=== PATIENT | female | born 1975 | race Caucasian/White ===

== ENCOUNTER 2017-12-19 16:25 | Emergency (ER) | payer MEDICARE, MEDICAID ==
[2017-12-19] MEDS ORDERED: Ketorolac INJ* 30 MG/ML 1 ML VIAL IV ONE (17:24)
[2017-12-19] MEDS ORDERED: Ondansetron INJ* 2 MG/ML VIAL IV ONE (17:24)
[2017-12-19] MEDS ORDERED: Ketorolac INJ* 30 MG/ML 1 ML VIAL ONE (17:25)
[2017-12-19] MEDS ORDERED: Ondansetron INJ* 2 MG/ML VIAL ONE (17:26)
[2017-12-19] MEDS: NS 0.9% 1000 ML* 2,000 ML IV ONE ×2 (17:32→19:01)
--- OUTSIDE RECORDS SUMMARY | 2017-12-19 17:34 | XMS REPORT ---
:1975 External Reference #:[id number] Author Organization [facility] [employer] Address [address] [address] Phone [phone] Care Team Providers Name Role Phone Patient's Choice Primary Care Physician Unavailable Payers Type Date Identification Numbers Payment Provider Subscriber Health Maintenance Effective: Policy Number: [facility] Medicare Ivy Rivera (HMO) 10/22/2016 [id number] Solutions PayID: [id number] [address] [address] [place] [address] Medigap Part B Effective: 03/22/2014 Policy Number: Medicare Ivy Alva [id number] Expires: 10/21/2016 PayID: [id number] [address] [place] [address] Medigap Part B Policy Number: [id number] Medicaid Ivy Alva Group Name: 1 [address] PayID: [id number] [place] [address] Problems Date Description Provider Status Onset: 08/05/2015 Calcific tendinitis of right shoulder Joanne Silva M.D. Active Onset: 09/21/2015 Injury of shoulder region Luciana Hernandez MD Active Note: Right shoulder Onset: 04/13/2016 Disorder of shoulder Luciana Hernandez MD Active Onset: 11/21/2016 Dystrophia unguium Sly Rhoades M.D. Active Family History Date Family Member(s) Problem(s) Comments General Heart Disease Father Unknown Mother No Current Problems Social History Type Date Description Comments Marital Status Single Lives With homeless Staying at relative's apt for next week. Has housing assistance through [facility] Occupation Unemployed Cigarette Use Light tobacco smoker (10 or fewer cigarettes/day) ETOH Use Has consumed alcohol in the abuse up to 2003 past Recreational Drug Use Former Drug User h/o MJ and cocaine. No longer since 2003 Smoking Patient is a former smoker Quit Oct 2016, smoker less than 10 Cigs per day as well as used a vaporizer. Exercise Type/Frequency Exercises sporadically Allergies, Adverse Reactions, Alerts Date Description Reaction Status Severity Comments 05/25/2014 Morphine Rash on left arm active Medications Medication Date Status Form Strength Qnty SIG Indications Ordering Provider Citalopram 11/23/ Active Tablets 20mg 30tabs Take One [place] Hydrobromide 2018 Tablet By BERTO Quezada Mouth Every Day Hydroxyzine 11/23/ Active Tablets 25mg 60tabs 1-2 tablets G47.00 [place] HCL 2018 QHS BERTO Quezada Compression 11/21/ Hx Misc 1units Wear daily I83.92 Sly Killianlaly 2016 - , 11/23/ M.D. 2018 Jublia 11/21/ Hx Solution 10% 12ml apply to L60.8 Sly 2017 - the surface , 11/23/ of each M.D. 2018 affected nail after showering and allowing toes to dry - daily No Active 10/24/ Hx Unknown Medications 2016 - 2016 Oxycodone-Acet 11/16/ Hx Tablets 5-325mg 60tabs 1-2 tabs M75.31 Luciana blackman 2015 - every 4-6 MD Mary 12/20/ hours. do 2016 not combine with tylenol Oxycodone-Acet 11/05/ Hx Tablets 5-325mg 90tabs 1-2 tabs by Sly blackman 2015 - mouth every Brandt, 12/20/ 4-6 hours M.D. 2016 as needed pain Percocet 10/11/ Hx Tablets 5-325mg 90tabs take 1 tabs M75.31 Luciana 2014 - as needed MD Mary 12/20/ for pain 2016 every 6 hours. do not combine with tylenol Oxycodone-Acet 15/ Hx Tablets 5-325mg 60tabs 1-2 tabs by M25.511 Ramón blackman 2014 - mouth every Luis, 12/20/ 8 hours as M.D. 2016 needed pain Naproxen 05/25/ Hx Tablets 500mg 40tabs 1 tablet Joanne 2013 - with food Ricardo, 07/06/ by mouth Hollie 2014 twice a day Citalopram / Hx Tablets 20mg 90tabs 1 by mouth Unknown Hydrobromide 0000 - every day 2016 Influenza,Unsp / Hx Injection Unknown ecified - 2016 Medications Administered in Office Medication Date Status Form Strength Qnty SIG Indications Ordering Provider Depomedrol Administered Injection Joanne 80MG 015 Hollie Silva Vital Signs Date Vital Result Comment 11/23/2017 Weight 119.00 lb Heart Rate 71 /min BP Systolic 100 mmHg BP Diastolic 60 mmHg Body Temperature 98.3 F O2 % BldC Oximetry 99 % 12/19/2016 Heart Rate 78 /min BP Systolic 120 mmHg BP Diastolic 70 mmHg O2 % BldC Oximetry 99 % 11/21/2016 Weight 153.00 lb Heart Rate 98 /min BP Systolic Sitting 118 mmHg BP Diastolic Sitting 70 mmHg Respiratory Rate 15 /min O2 % BldC Oximetry 98 % 11/07/2016 Weight 154.00 lb Heart Rate 83 /min BP Systolic Sitting 116 mmHg BP Diastolic Sitting 80 mmHg Body Temperature 98.1 F O2 % BldC Oximetry 97 % 10/24/2016 Height 62 inches 5'2" Weight 152.00 lb Heart Rate 78 /min BP Systolic Sitting 126 mmHg BP Diastolic Sitting 68 mmHg Body Temperature 97.7 F O2 % BldC Oximetry 98 % BMI (Body Mass Index) 27.8 kg/m2 06/01/2016 Height 63 inches 5'3" Weight 146.00 lb Pain Level 0 BMI (Body Mass Index) 25.9 kg/m2 04/13/2016 Height 63 inches 5'3" Weight 160.00 lb Heart Rate 64 /min BP Systolic Sitting 120 mmHg BP Diastolic Sitting 64 mmHg Respiratory Rate 16 /min Pain Level 2 soreness BMI (Body Mass Index) 28.3 kg/m2 12/22/2015 Height 63 inches 5'3" Weight 160.00 lb Pain Level 0 BMI (Body Mass Index) 28.3 kg/m2 11/16/2015 Height 63 inches 5'3" Weight 160.00 lb Body Temperature 98.2 F BMI (Body Mass Index) 28.3 kg/m2 10/11/2015 Height 63 inches 5'3" Weight 160.00 lb BMI (Body Mass Index) 28.3 kg/m2 09/21/2015 Height 63 inches 5'3" Weight 160.00 lb Pain Level 4 BMI (Body Mass Index) 28.3 kg/m2 08/20/2015 Height 63 inches 5'3" Weight 160.00 lb Pain Level 6 BMI (Body Mass Index) 28.3 kg/m2 08/05/2015 Height 63 inches 5'3" Weight 160.00 lb Pain Level 7 BMI (Body Mass Index) 28.3 kg/m2 05/25/2014 Height 63 inches 5'3" Weight 170.00 lb Heart Rate 74 /min BP Systolic 110 mmHg BP Diastolic 70 mmHg BMI (Body Mass Index) 30.1 kg/m2 Results Test Date Test Result H/L Range Note Laboratory test 11/07/2016 Hemoglobin A1c (Glyco 4.8 % Less than 6.0 1 finding HGB) TSH (Thyroid Stim Horm) 1.50 mcIU/mL 0.34-5.60 Lipid Profile (Trig/Chol/HDL) 11/07/2016 Triglycerides 48 mg/dL 2 Cholesterol 179 mg/dL 3 HDL Cholesterol 50.2 mg/dL 4 LDL Cholesterol 119 mg/dL 5 Laboratory test finding 11/04/2015 (HCG) Urine Negative Negative 6 1 Therapeutic target for the treatment of diabetes Mellitus patients is <7% HBA1C, and in selective patients <6.0%.Please refer to [place] [employer] Diabetic care guidelines for further information. 2 Desirable <150 Borderline high 150-199 High 200-499 Very High >500 3 Desirable <200 Borderline high 200-239 High >239 4 Low <40 Desirable: 40-60 High: >60 5 Desirable: <100 mg/dL Near Optimal: 100-129 mg/dL Borderline High: 130-159 mg/dL High: 160-189 mg/dL Very High: >189 mg/dL 6 If is still suspected, please repeat test after 48 to 72 hours. This test detects intact HCG only and is indicated for the early detection of . Procedures Date CPT Code Description Status 11/04/2015 54899 Arthroscopy,Shoulder Decompression Of Subacromial Space Completed W/Acromio 11/04/2015 82967 Arthroscopy,Shoulder Decompression Of Subacromial Space Completed W/Acromio 11/04/2015 73389 Arthroscopy Shoulder Debridement Limited Completed 11/04/2015 62244 Arthroscopy Shoulder Debridement Limited Completed 08/05/2015 01002 Inject/Drain Joint/Bursa Major Completed 05/25/2014 61270 Rad Shoulder Comp, Min. 2 Views Completed Encounters Type Date Location Provider CPT E/M Dx Office Visit 12/19/2016 [facility] Sly Rhoades M.D. 54659 M54.2 8:00a - [place] Office Visit 11/21/2016 [facility] Sly Rhoades M.D. 37558 I83.92 8:00a - [place] L60.8 B35.1 Office Visit 11/07/2016 9:20a [facility] Sly Rhoades 48950 F43.23 - [place] Office Visit 06/01/2016 8:00a [facility] [place] [address] M75.42 C.M.A. M75.31 Z47.89 M75.41 Office Visit 04/13/2016 8:00a [facility] [place] [address] M75.42 C.M.A. M75.31 Z47.89 M75.41 Office Visit 09/21/2015 1:30p [facility] [place] [address] M75.31 C.M.A. S46.101A Office Visit 08/20/2015 10:30a [facility] Silva M.D. 85570 M75.31 C.M.A. M25.511 M75.41 Office Visit 08/05/2015 3:30p [facility] M.D. 22187 M25.511 C.M.A. M75.31 S43.421A M75.41 Office Visit 05/25/2014 1:00p [facility] M.D. 61792 719.41 C.M.A. 718.81 Plan of Care 11/23/2017 - Alton Quezada NPG47.00 Insomnia, unspecifiedNew Medication: Hydroxyzine HCL 25 mgComments:I have prescribed the hydroxyzine that we discussed.Follow up:prn
[2017-12-19 18:33] LABS: ABS Basophils 0 10^3/ul (0-0.2); ABS Eosinophils 0 10^3/ul (0-0.6); ABS Lymphocytes 1.8 10^3/ul (1.0-4.8); ABS Monocytes 0.6 10^3/ul (0-0.8); ABS Neutrophils 11.4 10^3/ul (1.5-7.7); ABS Nucleated RBC 0 10^3/ul; Eosinophil % 0.1 % (0-6); Hematocrit 43 % (35-47); Hemoglobin 14.6 g/dl (12.0-16.0); Lymphocyte % 13.1 % (25-47); Mean Corpuscular HGB Conc 34 g/dl (31-36); Mean Corpuscular Hemoglobin 30 pg (27-31); Mean Corpuscular Volume 88 fL (80-97); Mean Platelet Volume 8 um3 (7.4-10.4); Nucleated Red Blood Cells % 0; Platelet Count 267 10^3/ul (150-450); Red Blood Count 4.83 10^6/ul (4.0-5.4); Red Cell Distribution Width 13 % (10.5-15); White Blood Count 13.9 10^3/ul (3.5-10.8)
[2017-12-19] MEDS ORDERED: HYDROmorphone INJ* 1 MG/ML CARPUJECT SYRINGE IV ONE ×2 (18:45→20:21)
[2017-12-19 18:47] LABS: INR 1.11 (0.77-1.02)
[2017-12-19 18:49] LABS: EGFR Non-African American 79.4 (>60)
--- NOTE | 2017-12-19 19:25 | RAD ---
INDICATION: Left flank pain COMPARISON: Renal stone CT January 08, 2014 TECHNIQUE: Noncontrast axial source images were acquired from the level hemidiaphragms to the symphysis pubis as part of CT imaging for renal stone. Lung bases: The lung bases are clear. Liver: The liver is normal in size. Noncontrast imaging shows no evidence of a new hepatic mass or ductal dilatation. There is a 1 cm cyst or hemangioma in the inferior right hepatic lobe, unchanged Gallbladder: Cholecystectomy. Spleen: The spleen is normal in size. The noncontrast CT appearance is normal. Pancreas: Pancreas is not well evaluated due to posterior fat planes and lack of oral contrast. No specific abnormalities are seen. Adrenal glands: No masses are identified. Kidneys/Bladder: There is bilateral nephrolithiasis with a nonobstructive 2 mm calculus in the upper pole of the right kidney and a 4 mm nonobstructive calculus in the lower pole. 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 There is a nonobstructive 5 mm calculus in the upper pole the left kidney. There is moderate left-sided hydronephrosis and hydroureter with a probable 4. Mm calculus near the left UVJ. There are multiple consultations the minor pelvis which are unchanged and represent phleboliths. Adenopathy: There is no evidence of intraperitoneal or retroperitoneal adenopathy. Evaluation is limited without oral contrast. Fluid collections: There are no free or localized fluid collections. Vessels: The aorta and iliac vessels are normal in caliber. There are no significant atherosclerotic changes. The IVC appears normal Pelvic organs: The uterus and adnexa appear normal GI tract: Evaluation of the bowel is limited without oral contrast. The stomach, small bowel, and lower GI tract appear grossly normal. There are no obstructive findings. The appendix is visualized and appears normal. Soft tissues: No soft tissue abnormalities of the extraperitoneal abdomen or pelvis are identified. Osseous structures: There are no acute osseous findings. IMPRESSION: BILATERAL NEPHROLITHIASIS WITH MODERATE OBSTRUCTION ON THE LEFT WHICH IS BELIEVED BE RELATED TO A 4 MM CALCULUS NEAR THE LEFT UVJ.
[2017-12-19 19:30] LABS: Urine Appearance Cloudy; Urine Blood 3+ (Negative); Urine Color Yellow; Urine Ketones Negative (Negative); Urine Protein 2+(100 mg/dL) (Negative); Urine Urobilinogen Negative (Negative)
[2017-12-19] MEDS ORDERED: Tamsulosin CAP* 0.4 MG PO ONE (19:58)
[2017-12-19] MEDS ORDERED: cefTRIAXone(*) 1 GM in NS 0.9% 50 ML* 50 ML IVPB ONE (19:58)
[2017-12-19] MEDS ORDERED: oxyCODONE/Acetamin 5/325 MG* TAB PO ONE (20:05)
[2017-12-19] MEDS: oxyCODONE/Acetamin 5/325 MG* TAB PO ONE ×2 (20:10→20:48)
[2017-12-19 20:56] VITALS: BP 107/58
--- NOTE | 2017-12-19 21:27 | ED ---
José Rodriguez Thomas, scribed for Kam Fry MD on 12/19/17 at 1846 . Abdominal Pain/Female - HPI Summary HPI Summary: The patient is a 42 year old female with a history of kidney stones presenting to the emergency department complaining of left-sided flank pain that began today at 15:00. She describes the pain as similar to prior kidney stones. She additionally complains of nausea. She did have some diarrhea yesterday. The patient denies dysuria, vaginal bleeding, and bloody stools. Past surgical history includes appendectomy and cholecystectomy. - History of Current Complaint Chief Complaint: EDFlankPain Stated Complaint: ABD PAIN Time Seen by Provider: 12/19/17 17:24 Hx Obtained From: Patient Onset/Duration: Lasting Hours, Still Present Severity Currently: Severe Pain Intensity: 8 Pain Scale Used: 0-10 Numeric Location: Flank - left Aggravating Factor(s): Nothing Alleviating Factor(s): Nothing Associated Signs and Symptoms: Positive: Nausea, Diarrhea - some yesterday. Negative: Fever, Blood in Stool, Urinary Symptoms, Vaginal Bleeding Allergies/Adverse Reactions: Allergies Allergy/AdvReac Type Severity Reaction Status Date / Time MS Morphine [Morphine] Allergy Rash Verified 02/13/16 14:15 PMH/Surg Hx/FS Hx/Imm Hx Endocrine/Hematology History: Denies: Hx Bone Marrow Disease, Hx Diabetes, Hx Sickle Cell Disease, Hx Thyroid Disease, Hx Anemia Cardiovascular History: Reports: Other Cardiovascular Problems/Disorders - ATRIAL SEPTAL DEFECT REPAIR Denies: Hx Angina, Hx Cardiomegaly, Hx Congestive Heart Failure, Hx Coronary Artery Disease, Hx Hypertension, Hx Pacemaker/ICD, Hx Peripheral Vascular Disease, Hx Rheumatic Fever, Hx Valvular Heart Disease Respiratory History: Denies: Hx Asthma, Hx Pulmonary Edema, Hx Pulmonary Embolism, Hx Sleep Apnea , Other Respiratory Problems/Disorders GI History: Denies: Hx Cirrhosis, Hx Crohn's Disease, Hx Gastroesophageal Reflux Disease , Hx Hiatal Hernia, Hx Irritable Bowel, Hx Jaundice, Hx Ulcer, Other GI Disorders History: Reports: Hx Kidney Stones - HX OF WHICH SHE PASSED Denies: Hx Kidney Infection, Other Problems/Disorders Musculoskeletal History: Reports: Hx Arthritis - TOES, Hx Bursitis - RIGHT SHOULDER, Hx Tendonitis - RIGHT SHOULDER Denies: Other Musculoskeletal History Sensory History: Reports: Hx Contacts or Glasses Denies: Hx Cataracts, Hx Glaucoma, Hx Hearing Aid Opthamlomology History: Reports: Hx Contacts or Glasses Denies: Hx Cataracts, Hx Glaucoma Neurological History: Reports: Hx Headaches, Hx Migraine Denies: Hx Seizures, Other Neuro Impairments/Disorders Psychiatric History: Reports: Hx Anxiety, Hx Depression, Hx Panic Disorder, Hx Inpatient Treatment, Hx Community Mental Health Tx, Hx Bipolar Disorder, Hx Substance Abuse Denies: Hx Eating Disorder, Hx of Violent Episodes Against Others - Cancer History Hx Chemotherapy: No - Surgical History Surgery Procedure, Year, and Place: 1998 CSECTION,. 2012 LAPAROSCOPIC CHOLECYSTECTOMY,. 2012 APPENDECTOMY, [facility]. 07/2014 ATRIAL SEPTAL DEFECT (ASD) - REPAIRED W/ PATCH, SAFE FOR 1.5T, [facility] Anesthesia Reactions: No Infectious Disease History: No Infectious Disease History: Denies: Hx Hepatitis, Traveled Outside the [place] in Last 30 Days - Family History Known Family History: Negative: Respiratory Disease - Social History Alcohol Use: Daily Alcohol Amount: none x 2 years Substance Use Type: Reports: Marijuana Substance Use Comment - Amount & Last Used: last used alcohol and marijuana 12 days ago Hx Tobacco Use: Yes - EXSMOKER Smoking Status (MU): Former Smoker Type: Cigarettes Amount Used/How Often: 1 PPD Length of Time of Smoking/Using Tobacco: 20 YEARS Have You Smoked in the Last Year: No Review of Systems Negative: Fever Positive: Abdominal Pain, Diarrhea - some yesterday, Nausea. Negative: Other - bloody stools Positive: no symptoms reported. Negative: other - vaginal bleeding All Other Systems Reviewed And Are Negative: Yes Physical Exam - Summary Physical Exam Summary: General: well-appearing, no pain distress Skin: warm, color reflects adequate perfusion, dry Head: normal Eyes: EOMI, MATTHEW ENT: normal Neck: supple, nontender Respiratory: CTA, breath sounds present Cardiovascular: RRR Abdomen: Soft. She is tender to the left flank and the LLQ. Bowel: hypoactive Musculoskeletal: normal, strength/ROM intact Neurological: normal, sensory/motor intact, A&O x3 Psychological: affect/mood appropriate Triage Information Reviewed: Yes Vital Signs On Initial Exam: Initial Vitals Temp Pulse Resp BP Pulse Ox 97.1 F 79 18 100/52 98 12/19/17 16:35 12/19/17 16:35 12/19/17 16:35 12/19/17 16:35 12/19/17 16:35 Vital Signs Reviewed: Yes Diagnostics - Vital Signs Vital Signs Temp Pulse Resp BP Pulse Ox 12/19/17 16:35 97.1 F 79 18 100/52 98 - Laboratory Lab Results: Lab Results 12/19/17 Range/Units 17:35 WBC 13.9 H (3.5-10.8) 10^3/ul RBC 4.83 (4.0-5.4) 10^6/ul Hgb 14.6 (12.0-16.0) g/dl Hct 43 (35-47) % MCV 88 (80-97) fL MCH 30 (27-31) pg MCHC 34 (31-36) g/dl RDW 13 (10.5-15) % Plt Count 267 (150-450) 10^3/ul MPV 8 (7.4-10.4) um3 Neut % (Auto) 82.1 (38-83) % Lymph % (Auto) 13.1 L (25-47) % [place] % (Auto) 4.4 (0-7) % Eos % (Auto) 0.1 (0-6) % Baso % (Auto) 0.3 (0-2) % Absolute Neuts (auto) 11.4 H (1.5-7.7) 10^3/ul Absolute Lymphs (auto) 1.8 (1.0-4.8) 10^3/ul Absolute Monos (auto) 0.6 (0-0.8) 10^3/ul Absolute Eos (auto) 0 (0-0.6) 10^3/ul Absolute Basos (auto) 0 (0-0.2) 10^3/ul Absolute Nucleated RBC 0 10^3/ul Nucleated RBC % 0 Result Diagrams: 12/19/17 17:35 12/19/17 17:35 Lab Statement: Any lab studies that have been ordered have been reviewed, and results considered in the medical decision making process. - CT CT Abd/Pel CT Interpretation: Positive (See Comments) - BILATERAL NEPHROLITHIASIS WITH MODERATE OBSTRUCTION ON THE LEFT WHICH IS BELIEVED BE RELATED TO A 4 MM CALCULUS NEAR THE LEFT UVJ. Dr. Fry has reviewed this report. CT Interpretation Completed By: Radiologist Abdominal Pain Fem Course/Dx - Course Course Of Treatment: Medications reviewed. Allergies noted. PAIN MEDICATION IN ED HELPED. NO SX OF UTI. GAVE ROCEPHIN IN ED AND RX BACTRIM DUE TO PYURIA. CLINICALLY, THE PATIENT DOES NOT HAVE A UTI. F/U UROLOGY; RETURN IF WORSE. - Diagnoses Provider Diagnoses: Kidney stone on left side Discharge - Discharge Plan Condition: Stable Disposition: HOME Prescriptions: oxyCODONE/Acetamin 5/325 MG* [Percocet 5/325 TAB*] 1 tab PO Q4H PRN #20 tab MDD 6 PRN Reason: Pain Sulfamethox/Trimethoprim DS* [Bactrim DS 800/160 TAB*] 1 tab PO BID #10 tab Tamsulosin CAP* [Flomax CAP*] 0.4 mg PO DAILY #5 cap Patient Education Materials: Kidney Stones (ED) Referrals: [facility] [Provider Group] Sly Rhoades MD [Primary Care Provider] - Shekhar Lowery MD [Medical Doctor] - Sumit Fernandez MD [Medical Doctor] - Additional Instructions: FOLLOW UP WITH UROLOGY. RETURN TO THE EMERGENCY DEPARTMENT FOR ANY WORSENING OF YOUR CONDITION OR QUESTIONS OR CONCERNS. YOUR BLOOD PRESSURE WAS ELEVATED TODAY; FOLLOW UP WITH YOUR PRIMARY CARE DOCTOR WITHIN THE NEXT 1 WEEK. The documentation as recorded by the José valencia Thomas accurately reflects the service I personally performed and the decisions made by , Kam Fry MD.
== END 2017-12-19 20:56 | disposition home or self-care (01) ==
LOC: ED 16:25
DX: N20.0 Calculus of kidney (principal); R10.9 Unspecified abdominal pain; R11.0 Nausea; R19.7 Diarrhea, unspecified
CPT/HCPCS: 36415; 74176; 80053; 81003; 81015; 83605; 84702; 85025; 85610; 85730; 86140; 87086; 99282; A9270-GY; J0696; J1170; J1885; J2405

== ENCOUNTER 2019-04-13 13:23 | Emergency (ER) | payer MEDICARE, MEDICAID ==
--- OUTSIDE RECORDS SUMMARY | 2019-04-13 13:41 | XMS REPORT | Continuity of Care Document ---
:1975 External Reference #:[id number] Author Name Katy Jimenez Care Team Providers Name Role Phone Chari Carrasquillo MD Primary Care Physician Unavailable Payers Date Identification Numbers Payment Provider Subscriber Effective: 2016 Policy Number: [id number] [facility] [employer] Ivy Alva PayID: [id number] [address] [address] [place] [address] Effective: 2014 Policy Number: [id number] Medicare Ivy Alva Expires: 2016 PayID: [id number] [address] [place] [address] Policy Number: [id number] Medicaid vIy Alva Group Name: 1 1 [address] PayID: [id number] [place] [address] Problems Active Problems Provider Date Calcific tendinitis of right shoulder Joanne Silva M.D. Onset: 08/05/2015 Injury of shoulder region Luciana Hernandez MD Onset: 09/21/2015 Note: Right shoulder Disorder of shoulder Luciana Hernandez MD Onset: 04/13/2016 Dystrophia unguium Sly Rhoades M.D. Onset: 11/21/2016 Depressive disorder Alton Quezada NP Onset: 11/28/2017 Family History Date Family Member(s) Observation Comments General Heart Disease Father Unknown Father due to CA () Mother No Current Problems Siblings 4 Social History Type Date Description Comments Sex Unknown Marital Status Single Lives With Alone Occupation Unemployed Hand Dominance Right-handed Tobacco Use Start: Unknown Light tobacco smoker (10 or fewer cigarettes/day) ETOH Use Has consumed alcohol in abuse up to 2003 the past Recreational Drug Use Former Drug User h/o MJ and cocaine. No longer since 2003 Tobacco Use Start: Unknown End: Patient is a former Quit Oct 2016, Unknown smoker smoker less than 10 Cigs per day as well as used a vaporizer. Smoking Status Reviewed: 04/10/19 Patient is a former Quit Oct 2016, smoker smoker less than 10 Cigs per day as well as used a vaporizer. Exercise Type/Frequency Exercises rarely walking Allergies, Adverse Reactions, Alerts Active Allergies Reaction Severity Comments Date Morphine Rash on left arm 05/25/2014 Medications Active Medications SIG Qnty Indications Ordering Provider Date Medical Compression Wear daily 3pairs I83.812 Alton Quezada NP 04/09/2019 Stockings/Unisex/30-40 MMHG/Open/Thigh Misc Vitamin C 1 by mouth Unknown 500mg Capsules every day Vitamin D High Potency 1 by mouth Unknown every day 1000Unit Capsules mm Vitamin B12 Unknown 5000mcg Tablets Dispers History Medications No Active Unknown 03/04/2019 - Medications 03/04/2019 Baclofen take 1/2 tab 90tabs Alton Quezada NP 09/23/2018 - 10mg Tablets every 8 hours. 03/03/2019 May increase by 1/2 tablet three times daily every other day to a maximum of 20mg tid. Hydroxyzine HCL 1-2 tablets QHS 60tabs G47.00 Alton Quezada NP 11/23/2017 - 25mg 09/09/2018 Tablets Citalopram Take One Tablet 30tabs Alton Quezada NP 11/23/2017 - Hydrobromide By Mouth Every 03/03/2019 20mg Day Tablets Jublia apply to the 12ml L60.8 Sly Rhoades, 11/21/2016 - 10% Solution surface of each M.D. 11/23/2017 affected nail after showering and allowing toes to dry - daily Compression Wear daily 1units I83.92 Sly Rhoades, 11/21/2016 - Stockings M.D. 11/23/2017 Misc No Active Unknown 10/24/2016 - Medications 11/21/2016 Oxycodone-Acetaminop 1-2 tabs every 60tabs M75.31 Luciana Hernandez, 2015 - hen 4-6 hours. do not MD 12/21/2015 5-325mg Tablets combine with tylenol Oxycodone-Acetaminop 1-2 tabs by mouth 90tabs Sly Carlton, 11/05/2015 - hen every 4-6 hours M.D. 12/21/2015 5-325mg Tablets as needed pain Percocet take 1 tabs as 90tabs M75.31 Luciana Hernandez, 10/11/2015 - 5-325mg needed for pain MD 12/21/2015 Tablets every 6 hours. do not combine with tylenol Oxycodone-Acetaminop 1-2 tabs by mouth 60tabs M25.511 Ramón Smith, - hen every 8 hours as M.D. 12/21/2015 5-325mg Tablets needed pain Naproxen 1 tablet with 40tabs Joanne Silva, 05/25/2014 - 500mg food by mouth M.D. 07/06/2015 Tablets twice a day Citalopram 1 by mouth every 90tabs Unknown - Hydrobromide day 10/24/2016 20mg Tablets Influenza,Unspecifie Unknown - d 10/24/2016 Injection Medications Administered in Office Medication SIG Qnty Indications Ordering Provider Date Depomedrol 80MG Joanne Silva M.D. 08/05/2015 Injection Vital Signs Date Vital Result Comment 04/10/2019 8:47am Height 63 inches 5'3" Weight 139.00 lb with shoes Heart Rate 80 /min radial, regular BP Systolic Sitting 120 mmHg LA, reg cuff BP Diastolic Sitting 76 mmHg LA, reg cuff BP Systolic Standing 122 mmHg LA, reg cuff BP Diastolic Standing 78 mmHg LA, reg cuff BMI (Body Mass Index) 24.6 kg/m2 Ejection Fraction NA no echo 04/09/2019 9:31am Height 63 inches 5'3" Weight 139.00 lb Heart Rate 90 /min BP Systolic 119 mmHg BP Diastolic 73 mmHg Body Temperature 97.9 F O2 % BldC Oximetry 97 % BMI (Body Mass Index) 24.6 kg/m2 03/12/2019 2:55pm Height 63 inches 5'3" Weight 148.50 lb Heart Rate 94 /min BP Systolic 116 mmHg BP Diastolic 73 mmHg Body Temperature 99.2 F O2 % BldC Oximetry 98 % BMI (Body Mass Index) 26.3 kg/m2 03/04/2019 11:24am Height 63 inches 5'3" Weight 142.00 lb Heart Rate 84 /min BP Systolic 112 mmHg BP Diastolic 82 mmHg BMI (Body Mass Index) 25.2 kg/m2 09/09/2018 4:23pm Height 63.25 inches 5'3.25" Weight 140.00 lb Heart Rate 78 /min BP Systolic 102 mmHg BP Diastolic 67 mmHg O2 % BldC Oximetry 100 % BMI (Body Mass Index) 24.6 kg/m2 11/23/2017 2:02pm Weight 119.00 lb Heart Rate 71 /min BP Systolic 100 mmHg BP Diastolic 60 mmHg Body Temperature 98.3 F O2 % BldC Oximetry 99 % 12/19/2016 8:07am Heart Rate 78 /min BP Systolic 120 mmHg BP Diastolic 70 mmHg O2 % BldC Oximetry 99 % 11/21/2016 7:50am Weight 153.00 lb Heart Rate 98 /min BP Systolic Sitting 118 mmHg BP Diastolic Sitting 70 mmHg Respiratory Rate 15 /min O2 % BldC Oximetry 98 % 11/07/2016 9:16am Weight 154.00 lb Heart Rate 83 /min BP Systolic Sitting 116 mmHg BP Diastolic Sitting 80 mmHg Body Temperature 98.1 F O2 % BldC Oximetry 97 % 10/24/2016 9:57am Height 62 inches 5'2" Weight 152.00 lb Heart Rate 78 /min BP Systolic Sitting 126 mmHg BP Diastolic Sitting 68 mmHg Body Temperature 97.7 F O2 % BldC Oximetry 98 % BMI (Body Mass Index) 27.8 kg/m2 06/01/2016 8:12am Height 63 inches 5'3" Weight 146.00 lb Pain Level 0 BMI (Body Mass Index) 25.9 kg/m2 04/13/2016 8:18am Height 63 inches 5'3" Weight 160.00 lb Heart Rate 64 /min BP Systolic Sitting 120 mmHg BP Diastolic Sitting 64 mmHg Respiratory Rate 16 /min Pain Level 2 soreness BMI (Body Mass Index) 28.3 kg/m2 12/22/2015 2:39pm Height 63 inches 5'3" Weight 160.00 lb Pain Level 0 BMI (Body Mass Index) 28.3 kg/m2 11/16/2015 1:55pm Height 63 inches 5'3" Weight 160.00 lb Body Temperature 98.2 F BMI (Body Mass Index) 28.3 kg/m2 10/11/2015 11:27am Height 63 inches 5'3" Weight 160.00 lb BMI (Body Mass Index) 28.3 kg/m2 09/21/2015 1:41pm Height 63 inches 5'3" Weight 160.00 lb Pain Level 4 BMI (Body Mass Index) 28.3 kg/m2 08/20/2015 10:47am Height 63 inches 5'3" Weight 160.00 lb Pain Level 6 BMI (Body Mass Index) 28.3 kg/m2 08/05/2015 3:49pm Height 63 inches 5'3" Weight 160.00 lb Pain Level 7 BMI (Body Mass Index) 28.3 kg/m2 05/25/2014 1:24pm Height 63 inches 5'3" Weight 170.00 lb Heart Rate 74 /min BP Systolic 110 mmHg BP Diastolic 70 mmHg BMI (Body Mass Index) 30.1 kg/m2 Results Test Date Facility Test Result H/L Range Note Laboratory test [facility] D Dimer < 200 ng/mL N Less Than 1 finding [address] [place] [address] [phone] C Reactive Protein 1.20 mg/L N <8.01 TSH (Thyroid Stim Horm) 0.78 mcIU/mL N 0.34-5.60 Troponin-I (TnI) 0.00 ng/mL <0.04 2 Comp Metabolic Panel 03/12/2019 [facility] Sodium 141 mmol/L N 135-[address] [place] [address] [phone] Potassium 4.9 mmol/L N 3.5-5.0 Chloride 106 mmol/L N 101-111 Co2 Carbon Dioxide 30 mmol/L N 22-32 Anion Gap 5 mmol/L N 2-11 Glucose 81 mg/dL N 70-100 Blood Urea Nitrogen 8 mg/dL N 6-24 Creatinine 0.78 mg/dL N 0.51-0.95 BUN/Creatinine Ratio 10.3 N 8-20 Calcium 9.7 mg/dL N 8.6-10.3 Total Protein 7.1 g/dL N 6.4-8.9 Albumin 4.6 g/dL N 3.2-5.2 Globulin 2.5 g/dL N 2-4 Albumin/Globulin Ratio 1.8 N 1-3 Total Bilirubin 0.30 mg/dL N 0.2-1.0 Alkaline Phosphatase 42 U/L N 34-104 Alt 11 U/L N 7-52 Ast 13 U/L N 13-39 Egfr Non- 81.4 >60 Egfr 98.5 >60 3 CBC Auto Diff 03/12/2019 [facility] White Blood 7.9 10^3/uL N 3.5-10.[address] [place] [address] [phone] Red Blood Count 4.94 10^6/uL High 3.70-4.87 Hemoglobin 14.6 g/dL N 12.0-16.0 Hematocrit 43 % N 35-47 Mean Corpuscular Volume 87 fL N 80-97 Mean Corpuscular Hemoglobin 30 pg N 27-31 Mean Corpuscular HGB Conc 34 g/dL N 31-36 Red Cell Distribution Width 13 % N 10.5-15 Platelet Count 291 10^3/uL N 150-450 Mean Platelet Volume 8.2 fL N 7.4-10.4 Abs Neutrophils 5.3 10^3/uL N 1.5-7.7 Abs Lymphocytes 2.1 10^3/uL N 1.0-4.8 Abs Monocytes 0.5 10^3/uL N 0-0.8 Abs Eosinophils 0.1 10^3/uL N 0-0.6 Abs Basophils 0.0 10^3/uL N 0-0.2 Abs Nucleated RBC 0.0 10^3/uL Granulocyte % 66.7 % Lymphocyte % 26.3 % Monocyte % 5.8 % Eosinophil % 0.7 % Basophil % 0.5 % Nucleated Red Blood Cells % 0.0 Lipid Profile 09/10/2018 [facility] Triglycerides 67 mg/dL 4 (Trig/Chol/HDL) [address] [place] [address] [phone] Cholesterol 214 mg/dL 5 HDL Cholesterol 64.9 mg/dL 6 LDL Cholesterol 136 mg/dL 7 Comp Metabolic Panel 09/10/2018 [facility] Sodium 141 mmol/L N 135-[address] [place] [address] [phone] Potassium 4.3 mmol/L N 3.5-5.0 Chloride 108 mmol/L N 101-111 Co2 Carbon Dioxide 27 mmol/L N 22-32 Anion Gap 6 mmol/L N 2-11 Glucose 97 mg/dL N 70-100 Blood Urea Nitrogen 11 mg/dL N 6-24 Creatinine 0.79 mg/dL N 0.51-0.95 BUN/Creatinine Ratio 13.9 N 8-20 Calcium 9.4 mg/dL N 8.6-10.3 Total Protein 6.6 g/dL N 6.4-8.9 Albumin 4.2 g/dL N 3.2-5.2 Globulin 2.4 g/dL N 2-4 Albumin/Globulin Ratio 1.8 N 1-3 Total Bilirubin 0.50 mg/dL N 0.2-1.0 Alkaline Phosphatase 45 U/L N 34-104 Alt 13 U/L N 7-52 Ast 13 U/L N 13-39 Egfr Non- 80.6 >60 Egfr 97.5 >60 8 CBC Auto Diff 09/10/2018 [facility] White Blood 6.9 10^3/uL N 3.5-10.[address] [place] [address] [phone] Red Blood Count 4.93 10^6/uL N 4.00-5.40 Hemoglobin 14.9 g/dL N 12.0-16.0 Hematocrit 43 % N 35-47 Mean Corpuscular Volume 88 fL N 80-97 Mean Corpuscular Hemoglobin 30 pg N 27-31 Mean Corpuscular HGB Conc 34 g/dL N 31-36 Red Cell Distribution Width 13 % N 10.5-15 Platelet Count 256 10^3/uL N 150-450 Mean Platelet Volume 8.1 fL N 7.4-10.4 Abs Neutrophils 4.0 10^3/uL N 1.5-7.7 Abs Lymphocytes 2.2 10^3/uL N 1.0-4.8 Abs Monocytes 0.5 10^3/uL N 0-0.8 Abs Eosinophils 0.1 10^3/uL N 0-0.6 Abs Basophils 0 10^3/uL N 0-0.2 Abs Nucleated RBC 0 10^3/uL Granulocyte % 58.8 % N 38-83 Lymphocyte % 32.8 % N 25-47 Monocyte % 6.8 % N 0-7 Eosinophil % 1.2 % N 0-6 Basophil % 0.4 % N 0-2 Nucleated Red Blood Cells % 0.1 Laboratory test 09/10/2018 [facility] Erythrocyte Sed 8 mm/Hr N 0-14 [address] [place] [address] [phone] C Reactive Protein < 1.00 mg/L N <8.01 10 Laboratory test 11/07/2016 [facility] Hemoglobin A1c 4.8 % N Less than [address] (Glyco HGB) 6.0 [place] [address] [phone] TSH (Thyroid Stim Horm) 1.50 mcIU/mL N 0.34-5.60 Lipid Profile 11/07/2016 [facility] Triglycerides 48 mg/dL N 12 (Trig/Chol/HDL) [address] [place] [address] [phone] Cholesterol 179 mg/dL N 13 HDL Cholesterol 50.2 mg/dL N 14 LDL Cholesterol 119 mg/dL N 15 Laboratory test 11/04/2015 [facility] Negative N Negative [address] (HCG) [place] [address] [phone] 1 Please note: The following may produce a false positive D Dimer test: - Rheumatoid factor greater than 60 IU/ml - Plasma hemoglobin greater than 0.05 gm/dl - Bilirubin greater than 50 mg/dl - Lipids greater than 1000 mg/dl - FDP greater than 20 ug/ml 2 Troponin-I testing on Plasma Separator Tubes (PST) has a known false positive rate of 0.20-0.40%. All positive troponins reflex immediately to secondary confirmatory testing. Using the [employer] DxI 800 Access Immunoassay systems, the 99th percentile upper reference limit was demonstrated to be < 0.03 ng/mL. 3 Because ethnic data is not always readily available, this report includes an eGFR for both -Americans and non- Americans. The National Kidney Disease Education Program (NKDEP) does not endorse the use of the MDRD equation for patients that are not between the ages of 18 and 70, are , have extremes of body size, muscle mass, or nutritional status, or are non- or non-. According to the National Kidney Foundation, irrespective of diagnosis, the stage of the disease is based on the level of kidney function: Stage Description GFR(mL/min/1.73 m(2)) 1 Kidney damage with normal or decreased GFR 90 2 Kidney damage with mild decrease in GFR 60-89 3 Moderate decrease in GFR 30-59 4 Severe decrease in GFR 15-29 5 Kidney failure <15 (or dialysis) 4 Desirable: <150 Borderline High: 150-199 High: 200-499 Very High: >500 5 Desirable: <200 Borderline High: 200-239 High: >239 6 Low: <40 Desirable: 40-60 High: >60 7 Desirable: <100 Near Optimal: 100-129 Borderline High: 130-159 High: 160-189 Very High: >189 8 Because ethnic data is not always readily available, this report includes an eGFR for both -Americans and non- Americans. The National Kidney Disease Education Program (NKDEP) does not endorse the use of the MDRD equation for patients that are not between the ages of 18 and 70, are , have extremes of body size, muscle mass, or nutritional status, or are non- or non-. According to the National Kidney Foundation, irrespective of diagnosis, the stage of the disease is based on the level of kidney function: Stage Description GFR(mL/min/1.73 m(2)) 1 Kidney damage with normal or decreased GFR 90 2 Kidney damage with mild decrease in GFR 60-89 3 Moderate decrease in GFR 30-59 4 Severe decrease in GFR 15-29 5 Kidney failure <15 (or dialysis) 9 FASTING 10 HOUR 10 FASTING 10 HOUR 11 Therapeutic target for the treatment of diabetes Mellitus patients is <7% HBA1C, and in selective patients <6.0%.Please refer to [place] [employer] Diabetic care guidelines for further information. 12 Desirable <150 Borderline high 150-199 High 200-499 Very High >500 13 Desirable <200 Borderline high 200-239 High >239 14 Low <40 Desirable: 40-60 High: >60 15 Desirable: <100 mg/dL Near Optimal: 100-129 mg/dL Borderline High: 130-159 mg/dL High: 160-189 mg/dL Very High: >189 mg/dL 16 If is still suspected, please repeat test after 48 to 72 hours. This test detects intact HCG only and is indicated for the early detection of . Procedures Date Code Description Status 04/10/2019 80890 EKG Tracing & Interpretation Completed 03/12/2019 09481 EKG Tracing & Interpretation Completed 11/04/2015 94051 Arthroscopy,Shoulder Decompression Of Subacromial Space Completed W/Acromio 11/04/2015 89215 Arthroscopy,Shoulder Decompression Of Subacromial Space Completed W/Acromio 11/04/2015 86951 Arthroscopy Shoulder Debridement Limited Completed 11/04/2015 59319 Arthroscopy Shoulder Debridement Limited Completed 08/05/2015 72287 Inject/Drain Joint/Bursa Major W/O US Completed 05/25/2014 91005 Rad Shoulder Comp, Min. 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 M79.605 Pain in left leg R07.89 Other chest pain Office Visit 03/04/2019 Alexei Maurer, R51 Headache 11:15a Neurologic [facility] Office Visit 09/09/2018 [facility] Internal Alton Quezada NP H91.90 Unspecified 4:20p [facility], unspecified ear R51 Headache Z13.220 Encounter for screening for lipoid disorders Z13.1 Encounter for screening for diabetes mellitus Office Visit 11/23/2017 2:00p [facility] Internal Alton Quezada, G47.00 Insomnia[facility] [employer] unspecified F32.89 Other specified depressive episodes Office 12/19/2016 [facility] M54.2 Cervicalgia Visit 8:00a Vamsi Rhoades M.D. Office 11/21/2016 [facility] I83.92 Asymptomatic Visit 8:00a Vamsi Rhoades M.D. 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 disorder with mixed anxiety and depressed mood Office Visit 06/01/2016 [facility] M75.42 Impingement 8:00a Chelo Hernandez MD syndrome of left shoulder M75.31 Calcific tendinitis of right shoulder Z47.89 Encounter for other orthopedic aftercare M75.41 Impingement syndrome of right shoulder Office Visit 04/13/2016 8:00a Orthopedic Luciana Hernandez M75.42 Impingement Services Of syndrome of left C.M.A. shoulder M75.31 Calcific tendinitis of right shoulder Z47.89 Encounter for other orthopedic aftercare M75.41 Impingement syndrome of right shoulder Office Visit 09/21/2015 1:30p Orthopedic Luciana Hernandez M75.31 [facility] Of tendinitis of C.M.A. right shoulder S46.101A Unsp injury of musc/fasc/tend long hd bicep, right arm, init Office Visit 08/20/2015 10:30a Orthopedic Joanne Silva M75.31 [facility] [place] tendinitis of C.M.A. right shoulder M25.511 Pain in right shoulder M75.41 Impingement syndrome of right shoulder Office Visit 08/05/2015 3:30p Orthopedic Joanne Silva M25.511 Pain in right Services Of CAngelicaMMur[facility] WalhsDAngelica shoulder M75.31 Calcific tendinitis of right shoulder S43.421A Sprain of right rotator cuff capsule, initial encounter M75.41 Impingement syndrome of right shoulder Office Visit 05/25/2014 1:00p Orthopedic Joanne Silva, 719.41 [facility]. MAngelicaDAngelica Shoulder Region 718.81 Derangement Joint Other Not Elsewhere Class Shoulder Plan of Treatment Future Appointment(s):06/04/2019 8:30 am - Lauren Bolanos NDarwin at [facility]05/14/2019 8:00 am - [place] [facility] at [facility]2018 8:30 am - Pankaj Landrum M.D. at [facility]05/02/2019 11:00 am - [place] [facility] Schedule at [facility]05/02/2019 10:30 am - Nurse Visit cc at [facility]05/01/2019 12:00 pm - Nurse Visit cc at [facility]05/30/2019 8:45 am - Jerod Maurer M.D. at [place] [facility]04/10/2019 - Pankaj Landrum M.D.R07.9 Chest pain, unspecifiedNew Orders:Stress Test, Exercise Echocardiogram, Ordered: R00.2 PalpitationsNew Orders:Holter Monitor, Ordered: 04/10/19Recommendations: reduce [id number] Atrial septal defectNew Orders:Echocardiogram, Ordered: Follow up:ov Lauren 2 m ov [facility] 7 m PLEASE OBTAIN CATH, d/c summary , echo, admission note, CONSULT FROM Ashwin Ceja 7311J86.200 Nicotine dependenceRecommendations:ADVISED SMOKING CESSATION
--- OUTSIDE RECORDS SUMMARY | 2019-04-13 13:41 | XMS REPORT | Continuity of Care Document ---
:1975 External Reference #:[id number] Author Name Florencia Hsieh Care Team Providers Name Role Phone Chari Carrasquillo MD Primary Care Physician Unavailable Payers Date Identification Numbers Payment Provider Subscriber Effective: 2016 Policy Number: [id number] [facility] Medicare Solutions Ivy Alva PayID: [id number] [address] [address] [place] [address] Effective: 2014 Policy Number: [id number] Medicare Ivy Alva Expires: 2016 PayID: [id number] [address] [place] [address] Policy Number: [id number] Medicaid Ivy Alva Group Name: 1 1 [address] PayID: [id number] [place] [address] Problems Active Problems Provider Date Calcific tendinitis of right shoulder Joanne Silva M.D. Onset: 08/05/2015 Injury of shoulder region Luciana Hernandez MD Onset: 09/21/2015 Note: Right shoulder Disorder of shoulder Luciana Hernandez MD Onset: 04/13/2016 Dystrophia unguium Sly Rhoades M.D. Onset: 11/21/2016 Depressive disorder Alton Quezada NP Onset: 11/28/2017 Family History Date Family Member(s) Observation Comments General Heart Disease Father Unknown Mother No Current Problems Social History Type Date Description Comments Sex [...] as used a vaporizer. Smoking Status Reviewed: 03/12/19 Patient is a former Quit Oct 2016, smoker smoker less than 10 Cigs per day as well as used a vaporizer. Exercise Type/Frequency Exercises rarely Allergies, Adverse Reactions, Alerts Active Allergies Reaction Severity Comments Date Morphine Rash on left arm 05/25/2014 Medications Active Medications SIG Qnty Indications Ordering Provider Date Vitamin C 1 by mouth every Unknown 500mg Capsules day Vitamin D High Potency 1 by mouth every Unknown day 1000Unit Capsules History Medications No Active Unknown 03/04/2019 - [...] By Mouth Every 03/03/2019 20mg Day Tablets Compression Wear daily 1units I83.92 Sly Rhoades, 11/21/2016 - Stockings M.D. 11/23/2017 Misc Jublia apply to the 12ml L60.8 Sly Rhoades, 11/21/2016 - 10% Solution surface of each M.D. 11/23/2017 affected nail after showering and allowing toes to dry - daily No Active Unknown 10/24/2016 - Medications 11/21/2016 [...] Injection Vital Signs Date Vital Result Comment 03/12/2019 2:55pm Height 63 inches 5'3" Weight [...] Date Facility Test Result H/L Range Note CBC Auto Diff 03/12/2019 [facility] White Blood 7.9 10^3/uL N 3.5-10.[address] [place] [address] [phone] Red Blood Count 4.94 10^6/uL High 3.70-4.87 [...] % Nucleated Red Blood Cells % 0.0 Comp Metabolic Panel 03/12/2019 [facility] Sodium 141 mmol/L N 135-[address] [place] [address] [phone] Potassium 4.9 mmol/L N 3.5-5.0 Chloride 106 [...] Egfr Non- 81.4 >60 Egfr 98.5 >60 1 Laboratory test 03/12/2019 [facility] D Dimer < 200 N Less Than [address] Quantitative ng/mL [address] [place] [address] [phone] C Reactive Protein 1.20 mg/L N <8.01 TSH (Thyroid Stim Horm) 0.78 mcIU/mL N 0.34-5.60 Troponin-I (TnI) 0.00 ng/mL <0.04 3 Laboratory test 09/10/2018 [facility] Erythrocyte Sed 8 mm/Hr N 0-14 [address] [place] [address] [phone] C Reactive Protein < 1.00 mg/L N <8.01 5 CBC Auto Diff 09/10/2018 [facility] White Blood 6.9 10^3/uL N 3.5-10.[address] [place] [address] [phone] Red Blood Count 4.93 10^6/uL N 4.00-5.40 [...] 0-2 Nucleated Red Blood Cells % 0.1 Lipid Profile 09/10/2018 [facility] Triglycerides 67 mg/dL 6 (Trig/Chol/HDL) [address] [place] [address] [phone] Cholesterol 214 mg/dL 7 HDL Cholesterol 64.9 mg/dL 8 LDL Cholesterol 136 mg/dL 9 Comp Metabolic Panel 09/10/2018 [facility] Sodium 141 mmol/L N 135-145 [address] [place] [address] [phone] Potassium 4.3 mmol/L N 3.5-5.0 Chloride 108 [...] Egfr Non- 80.6 >60 Egfr 97.5 >60 10 Laboratory test 11/07/2016 [facility] Hemoglobin A1c 4.8 % N Less than 11 finding 101 (Glyco HGB) 6.0 [place] [address] [phone] TSH (Thyroid Stim Horm) 1.50 mcIU/mL N 0.34-5.60 Lipid Profile 11/07/2016 [facility] Triglycerides 48 mg/dL N 12 (Trig/Chol/HDL) [address] [place] [address] [phone] Cholesterol 179 mg/dL N 13 HDL Cholesterol 50.2 mg/dL N 14 LDL Cholesterol 119 mg/dL N 15 Laboratory test 11/04/2015 [facility] Negative N Negative [address] (HCG) [place] [address] [phone] 1 Because ethnic data is not always readily [...] 15-29 5 Kidney failure <15 (or dialysis) 2 Please note: The following may produce a false positive D Dimer test: - Rheumatoid factor greater than 60 IU/ml - Plasma hemoglobin greater than 0.05 gm/dl - Bilirubin greater than 50 mg/dl - Lipids greater than 1000 mg/dl - FDP greater than 20 ug/ml 3 Troponin-I testing on Plasma Separator Tubes (PST) has a known false positive rate of 0.20-0.40%. All positive troponins reflex immediately to secondary confirmatory testing. Using the [employer] DxI 800 Access Immunoassay systems, the 99th percentile upper reference limit was demonstrated to be < 0.03 ng/mL. 4 FASTING 10 HOUR 5 FASTING 10 HOUR 6 Desirable: <150 Borderline High: 150-199 High: 200-499 Very High: >500 7 Desirable: <200 Borderline High: 200-239 High: >239 8 Low: <40 Desirable: 40-60 High: >60 9 Desirable: <100 Near Optimal: 100-129 Borderline High: 130-159 High: 160-189 Very High: >189 10 Because ethnic data is not always readily [...] 15-29 5 Kidney failure <15 (or dialysis) 11 Therapeutic target for the treatment of diabetes Mellitus patients is <7% HBA1C, and in selective patients <6.0%.Please refer to [place] Diabetes Association Diabetic care guidelines for further [...] of . Procedures Date Code Description Status 03/12/2019 37200 EKG Tracing & Interpretation Completed 11/04/2015 84578 Arthroscopy,Shoulder Decompression Of Subacromial Space Completed W/Acromio 11/04/2015 70842 Arthroscopy,Shoulder Decompression Of Subacromial Space Completed W/Acromio 11/04/2015 31322 Arthroscopy Shoulder Debridement Limited Completed 11/04/2015 96941 Arthroscopy Shoulder Debridement Limited Completed 08/05/2015 95050 Inject/Drain Joint/Bursa Major W/O US Completed 05/25/2014 06836 Rad Shoulder Comp, Min. 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 [place] Office Visit 11/21/2016 8:00a [facility] Internal Sly I83.92 Asymptomatic Quintin Rhoades M.D. varicose veins of [place] left lower extremity L60.8 Other nail disorders B35.1 Tinea unguium Office Visit 11/07/2016 9:20a [facility] Internal Sly F43.23 Adjustment Quintin Rhoades M.D. disorder with [place] mixed anxiety and depressed mood Office Visit 06/01/2016 8:00a Orthopedic Kiersten Menchaca.42 Impingement Services Of MD syndrome of left C.M.A. shoulder M75.31 Calcific tendinitis of right shoulder Z47.89 Encounter for other orthopedic aftercare M75.41 Impingement syndrome of right shoulder Office Visit 04/13/2016 8:00a Orthopedic An [place]42 Impingement Services Of MD syndrome of left C.M.A. shoulder M75.31 Calcific tendinitis of right shoulder Z47.89 Encounter for other orthopedic aftercare M75.41 Impingement syndrome of right shoulder Office Visit 09/21/2015 1:30p Orthopedic Kiersten Menchaca.31 Cal[facility] Services Of MD tendinitis of C.M.A. right shoulder S46.101A Unsp injury of musc/fasc/tend long hd bicep, right arm, init Office Visit 08/20/2015 10:30a Orthopedic Kiersten Glover.31 Calcific Services Of [place] tendinitis of C.M.A. right shoulder M25.511 Pain in right shoulder M75.41 Impingement syndrome of right shoulder Office Visit 08/05/2015 3:30p Ferny Silva M25.511 Pain in right Services Of C.M.A. M.D. shoulder M75.31 Calcific tendinitis of right shoulder S43.421A Sprain of right rotator cuff capsule, initial encounter M75.41 Impingement syndrome of right shoulder Office Visit 05/25/2014 1:00p Orthopedic Joanne Silva 719.41 Pain Joint Services Of C.M.A. M.D. Shoulder Region 718.81 Derangement Joint Other Not Elsewhere Class Shoulder Plan of Treatment Future Appointment(s):04/10/2019 9:00 am - Pankaj Landrum M.D. at [place] [facility]28/09/2019 8:45 am - Jerod Maurer M.D. at [place] [facility]03/12/2019 - Alton Quezada, NPR07.89 Other chest painReferral: [place] [facility], Cardiovsclr JbsfmbrV18.74 Personal history of (corrected) congenital malformations ofReferral:[facility], Cardiovsclr CxqwmxxO37.605 Pain in left legComments:I recommend calling your insurance and finding the name of a vascular surgeon that is on par with them.
--- OUTSIDE RECORDS SUMMARY | 2019-04-13 13:41 | XMS REPORT | Continuity of Care Document ---
:1975 External Reference #:[id number] Author Name Denisa Mcgarry Care Team Providers Name Role Phone Chari Carrasquillo MD Primary Care Physician Unavailable Payers Date Identification Numbers Payment Provider Subscriber Effective: 2016 Policy Number: [id number] [facility] Medicare Solutions Ivy Alva PayID: [id number] [address] [address] [place] [address] Effective: 2014 Policy Number: [id number] Medicare Ivy Alva Expires: 2016 PayID: [id number] [address] [place] [address] Policy Number: [id number] Medicaid Ivy Alva Group Name: 1 1 [address] PayID: [id number] [place] [address] Problems Active Problems Provider Date Calcific tendinitis [...] as used a vaporizer. Smoking Status Reviewed: 04/09/19 Patient is a former Quit Oct 2016, [...] Oxycodone-Acetaminop 1-2 tabs by mouth 90tabs Sly Brandt, 11/05/2015 - hen every 4-6 hours M.D. 12/21/2015 5-325mg Tablets as needed pain Percocet take 1 tabs as 90tabs M75.31 Luciana Hernandez, 10/11/2015 - 5-325mg needed for pain MD 12/21/2015 Tablets every 6 hours. do not combine with tylenol Oxycodone-Acetaminop 1-2 tabs by mouth 60tabs M25.511 Ramón Palacioino, - hen every 8 hours as M.D. [...] Injection Vital Signs Date Vital Result Comment 04/09/2019 9:31am Height 63 inches 5'3" Weight [...] H/L Range Note CBC Auto Diff 03/12/2019 [facility] White Blood 7.9 10^3/uL N 3.5-10.[address] [place] [address] [phone] Red Blood Count 4.94 10^6/uL High 3.70-4.87 [...] Cells % 0.0 Comp Metabolic Panel 03/12/2019 [facility] Sodium 141 mmol/L N 135-[address] [place] [address] [phone] Potassium 4.9 mmol/L N 3.5-5.0 Chloride 106 [...] Egfr 98.5 >60 1 Laboratory test 03/12/2019 [facility] D Dimer < 200 N Less Than [address] Quantitative ng/mL 230 [place] [address] [phone] C Reactive Protein 1.20 mg/L N <8.01 TSH (Thyroid Stim Horm) 0.78 mcIU/mL N 0.34-5.60 Troponin-I (TnI) 0.00 ng/mL <0.04 3 Laboratory test 09/10/2018 [facility] Erythrocyte Sed 8 mm/Hr N 0-14 [address] [place] [address] [phone] C Reactive Protein < 1.00 mg/L N <8.01 5 CBC Auto Diff 09/10/2018 [facility] White Blood 6.9 10^3/uL N 3.5-10.[address] [place] [address] [phone] Red Blood Count 4.93 10^6/uL N 4.00-5.40 [...] Blood Cells % 0.1 Lipid Profile 09/10/2018 [facility] Triglycerides 67 mg/dL 6 (Trig/Chol/HDL) [address] [place] [address] [phone] Cholesterol 214 mg/dL 7 HDL Cholesterol 64.9 mg/dL 8 LDL Cholesterol 136 mg/dL 9 Comp Metabolic Panel 09/10/2018 [facility] Sodium 141 mmol/L N 135-[address] [place] [address] [phone] Potassium 4.3 mmol/L N 3.5-5.0 Chloride 108 [...] Egfr 97.5 >60 10 Laboratory test 11/07/2016 [facility] Hemoglobin A1c 4.8 % N Less than [address] (Glyco HGB) 6.0 [place] [address] [phone] TSH (Thyroid Stim Horm) 1.50 mcIU/mL N 0.34-5.60 Lipid Profile 11/07/2016 [facility] Triglycerides 48 mg/dL N 12 (Trig/Chol/HDL) [address] [place] [address] [phone] Cholesterol 179 mg/dL N 13 HDL Cholesterol 50.2 mg/dL N 14 LDL Cholesterol 119 mg/dL N 15 Laboratory test 11/04/2015 [facility] Negative N Negative [address] (HCG) [place] [address] [phone] 1 Because ethnic data is not always [...] immediately to secondary confirmatory testing. Using the [employer] DxI 800 Access Immunoassay systems, the 99th [...] and in selective patients <6.0%.Please refer to [place] Diabetes Association Diabetic care guidelines for further [...] . Procedures Date Code Description Status 03/12/2019 40825 EKG Tracing & Interpretation Completed 11/04/2015 05811 Arthroscopy,Shoulder Decompression Of Subacromial Space Completed W/Acromio 11/04/2015 69262 Arthroscopy,Shoulder Decompression Of Subacromial Space Completed W/Acromio 11/04/2015 00824 Arthroscopy Shoulder Debridement Limited Completed 11/04/2015 33492 Arthroscopy Shoulder Debridement Limited Completed 08/05/2015 74452 Inject/Drain Joint/Bursa Major W/O US Completed 05/25/2014 09328 Rad Shoulder Comp, Min. 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 M79.605 Pain in left leg R07.89 Other chest pain Office Visit 03/04/2019 Alexei Maurer, R51 Headache 11:15a Neurologic M.DAngelica Services Of [facility] Office Visit 09/09/2018 [facility] Internal Alton Quezada NP H91.90 Unspecified 4:20p [facility], unspecified ear R51 Headache Z13.220 Encounter for screening for lipoid disorders Z13.1 Encounter for screening for diabetes mellitus Office Visit 11/23/2017 2:00p [facility] Internal Alton Quezada, G47.00 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 Office 11/21/2016 [facility] Internal Sly I83.92 Asymptomatic Visit 8:00a Vamsi Rhoades M.D. varicose veins of left lower extremity L60.8 Other nail disorders B35.1 Tinea unguium Office Visit 11/07/2016 [facility] Internal Sly F43.23 Adjustment 9:20a Vamsi Rhoades M.D. disorder with mixed anxiety and depressed mood Office Visit 06/01/2016 [facility] Luciana Burch.42 Impingement 8:00a Chelo Hernandez MD syndrome of left shoulder M75.31 Calcific tendinitis of right shoulder Z47.89 Encounter for other orthopedic aftercare M75.41 Impingement syndrome of right shoulder Office Visit 04/13/2016 8:00a Orthopedic Kiersten Menchaca.42 Impingement Services Of syndrome of left Frances.A. shoulder M75.31 Calcific tendinitis of right shoulder Z47.89 Encounter for other orthopedic aftercare M75.41 Impingement syndrome of right shoulder Office Visit 09/21/2015 1:30p Orthopedic Kiersten Menchaca.Alesia Calcific Services Of tendinitis of C.M.A. right shoulder S46.101A Unsp injury of musc/fasc/tend long hd bicep, right arm, init Office Visit 08/20/2015 10:30a Orthopedic Joanne Silva M75.31 Cal[facility]ific Services Of [place] tendinitis of C.M.A. right shoulder M25.511 Pain in right shoulder M75.41 Impingement syndrome of right shoulder Office Visit 08/05/2015 3:30p Orthopedic Joanne Silva M25.511 Pain in right Services Of C.MMurray WalshDAngelica shoulder M75.31 Calcific tendinitis of right shoulder S43.421A Sprain of right rotator cuff capsule, initial encounter M75.41 Impingement syndrome of right shoulder Office Visit 05/25/2014 1:00p Orthopedic Joanne Silva, 719.41 Pain Joint Services Of C.M.Yovany. [place] Shoulder Region 718.81 Derangement Joint Other Not Elsewhere Class Shoulder Plan of Treatment Future Appointment(s):05/30/2019 8:45 am - Jerod Maurer M.D. at [place] [facility]04/09/2019 - Alton Quezada, NPM79.605 Pain in left legI83.812 Varicose veins of left lower extremity with painNew Medication: Medical Compression Stockings/Unisex/30-40MMHG/Open/Thigh - Wear thokiK52.89 Other specified depressive episodesComments:If you decide you need a medication to help please let me know.
--- NOTE | 2019-04-13 14:59 | ED ---
Abdominal Pain/Male - HPI Summary HPI Summary: A 43 y/o female presents to [facility] with a chief complaint of abdominal pain today. At triage she rated her pain as a 4/10 in severity, but now she denies any abdominal pain, rating her pain as a 0/10 in severity. She also denies any fevers, chills, or N/V. She claims that she took herself off of prescribed medications from her PCP, Dr. Quezada. She says that she does not feel safe at home and lives alone. She believes that she may be . She denies any SI or HI, is not hearing voices or feeling paranoid. She is requesting to be evaluated by the mental health department. - History of Current Complaint Chief Complaint: EDAbdPain Stated Complaint: ABD PAIN/PARINOID PER PT Time Seen by Provider: 04/13/19 14:39 Hx Obtained From: Patient Onset/Duration: Sudden Onset, Lasting Days, Resolved Timing: Intermittent, Lasting Days Severity Initially: Moderate Severity Currently: None Pain Intensity: 0 Pain Scale Used: 0-10 Numeric Location: Diffuse Radiates: No Character: Other: - none Aggravating Factor(s): Nothing Alleviating Factor(s): Nothing Associated Signs And Symptoms: Negative: Fever, Nausea, Vomiting - Allergies/Home Medications Allergies/Adverse Reactions: Allergies Allergy/AdvReac Type Severity Reaction Status Date / Time morphine Allergy Rash Verified 04/13/19 13:30 PMH/Surg Hx/FS Hx/Imm Hx Endocrine/Hematology History: Denies: Hx Bone Marrow Disease, Hx Diabetes, Hx Sickle Cell Disease, Hx Thyroid Disease, Hx Anemia Cardiovascular History: Reports: Other Cardiovascular Problems/Disorders - ATRIAL SEPTAL DEFECT REPAIR Denies: Hx Angina, Hx Cardiomegaly, Hx Congestive Heart Failure, Hx Coronary Artery Disease, Hx Hypertension, Hx Pacemaker/ICD, Hx Peripheral Vascular Disease, Hx Rheumatic Fever, Hx Valvular Heart Disease Respiratory History: Denies: Hx Asthma, Hx Pulmonary Edema, Hx Pulmonary Embolism, Hx Sleep Apnea , Other Respiratory Problems/Disorders GI History: Denies: Hx Cirrhosis, Hx Crohn's Disease, Hx Gastroesophageal Reflux Disease , Hx Hiatal Hernia, Hx Irritable Bowel, Hx Jaundice, Hx Ulcer, Other GI Disorders History: Reports: Hx Kidney Stones - HX OF WHICH SHE PASSED Denies: Hx Kidney Infection, Other Problems/Disorders Musculoskeletal History: Reports: Hx Arthritis - TOES, Hx Bursitis - RIGHT SHOULDER, Hx Tendonitis - RIGHT SHOULDER Denies: Other Musculoskeletal History Sensory History: Reports: Hx Contacts or Glasses Denies: Hx Cataracts, Hx Glaucoma, Hx Hearing Aid Opthamlomology History: Reports: Hx Contacts or Glasses Denies: Hx Cataracts, Hx Glaucoma Neurological History: Reports: Hx Headaches, Hx Migraine Denies: Hx Seizures, Other Neuro Impairments/Disorders Psychiatric History: Reports: Hx Anxiety, Hx Depression, Hx Panic Disorder, Hx Inpatient Treatment, Hx Community Mental Health Tx, Hx Bipolar Disorder, Hx Substance Abuse Denies: Hx Eating Disorder, Hx of Violent Episodes Against Others - Cancer History Hx Chemotherapy: No - Surgical History Surgery Procedure, Year, and Place: 1998 CSECTION,. 2012 LAPAROSCOPIC CHOLECYSTECTOMY,. 2012 APPENDECTOMY, [facility]. 07/2014 ATRIAL SEPTAL DEFECT (ASD) - REPAIRED W/ PATCH, SAFE FOR [address] [place] [address] Anesthesia Reactions: No Infectious Disease History: No Infectious Disease History: Denies: Hx Hepatitis, Traveled Outside the [place] in Last 30 Days - Family History Known Family History: Negative: Respiratory Disease - Social History Alcohol Use: Daily Alcohol Amount: none x 2 years Substance Use Type: Reports: Marijuana Substance Use Comment - Amount & Last Used: last used alcohol and marijuana 12 days ago Hx Tobacco Use: Yes - EXSMOKER Smoking Status (MU): Former Smoker Type: Cigarettes Amount Used/How Often: 1 PPD Length of Time of Smoking/Using Tobacco: 20 YEARS Have You Smoked in the Last Year: No Review of Systems Negative: Fever, Chills Positive: Abdominal Pain. Negative: Vomiting, Nausea All Other Systems Reviewed And Are Negative: Yes Physical Exam - Summary Physical Exam Summary: GENERAL: Patient is a well-developed and nourished F who is lying comfortable in the stretcher. Patient is not in any acute respiratory distress. HEAD AND FACE: Normocephalic EYES: PERRLA, EOMI x 2. EARS: Hearing grossly intact. MOUTH: Oropharynx within normal limits. NECK: Supple, trachea is midline, no adenopathy, no JVD, no carotid bruit. CHEST: Symmetric, no tenderness at palpation LUNGS: Clear to auscultation bilaterally. No wheezing or crackles. CVS: Regular rate and rhythm, S1 and S2 present, no murmurs or gallops appreciated. ABDOMEN: Soft, mildly TTP. Bowel sounds are normal. No abnormal abdominal pulsations. EXTREMITIES: Full ROM in all major joints, no edema, no cyanosis or clubbing. NEURO: Alert and oriented x 3. No acute neurological deficits. Speech is normal and follows commands. SKIN: Dry and warm Triage Information Reviewed: Yes Vital Signs On Initial Exam: Initial Vitals Temp Pulse Resp BP Pulse Ox 98.8 F 90 16 126/90 98 04/13/19 13:25 04/13/19 13:25 04/13/19 13:25 04/13/19 13:25 04/13/19 13:25 Vital Signs Reviewed: Yes Diagnostics - Vital Signs Vital Signs Temp Pulse Resp BP Pulse Ox 04/13/19 13:25 98.8 F 90 16 126/90 98 - Laboratory Result Diagrams: 04/13/19 14:55 04/13/19 14:55 Lab Statement: Any lab studies that have been ordered have been reviewed, and results considered in the medical decision making process. - EKG 14:49 Cardiac Rate: NL - 78 bpm EKG Rhythm: Sinus Rhythm Summary of EKG Findings: NSR at 78 bpm. Nml axis. Abdominal Pain Male Course/Dx - Course Course Of Treatment: This patient's chief complaint was abdominal pain, but she has not had abdominal pain in the ED. The physical exam revealed that the patient's abdomen was mildly tender to palpation. EKG at 14:49 showed NSR at 78 bpm. Nml axis. In the ED course the patient was given Atarax PO and Motrin PO. Bloodwork, chemistries, urines and toxicology obtained. Lactic acid of 0.4 at 14 :55. The patient has been medically cleared for MHE. The patient will be signed out from Dr. Hackett to Dr. Calderon upon shift change at 19:00 04/13/19 pending MHE. - Diagnoses Provider Diagnoses: Evaluation by psychiatric service required Discharge - Sign-Out/Discharge Documenting (check all that apply): Sign-Out Patient Signing out patient TO: Glynn Calderon - pending MHE Patient Received Moderate/Deep Sedation with Procedure: No - Discharge Plan Condition: Stable Referrals: Chari Carrasquillo MD [Primary Care Provider] - - Billing Disposition and Condition Condition: STABLE - Attestation Statements Document Initiated by Scribe: Yes Documenting Scribe: Atif Babcock Provider For Whom Scribe is Documenting (Include Credential): Kendell Hackett MD Scribe Attestation: I, Atif Babcock, scribed for Kendell Hackett MD on 04/13/19 at 1828. Scribe Documentation Reviewed: Yes Provider Attestation: The documentation as recorded by the scribe, Atif Babcock accurately reflects the service I personally performed and the decisions made by me, Mariza Hackett MD Status of Scribe Document: Viewed
[2019-04-13 15:03] LABS: ABS Basophils 0.1 10^3/ul (0-0.2); ABS Eosinophils 0.1 10^3/ul (0-0.6); ABS Lymphocytes 2.2 10^3/ul (1.0-4.8); ABS Monocytes 0.5 10^3/ul (0-0.8); ABS Neutrophils 5.3 10^3/ul (1.5-7.7); Eosinophil % 0.6 %; Hematocrit 42 % (35-47); Hemoglobin 14.6 g/dL (12.0-16.0); Lymphocyte % 27.1 %; Mean Corpuscular HGB Conc 35 g/dL (31-36); Mean Corpuscular Hemoglobin 30 pg (27-31); Mean Corpuscular Volume 87 fL (80-97); Mean Platelet Volume 7.6 fL (7.4-10.4); Nucleated Red Blood Cells % 0.1; Platelet Count 225 10^3/uL (150-450); Red Blood Count 4.85 10^6 /uL (3.70-4.87); Red Cell Distribution Width 13 % (10-15)
[2019-04-13 15:19] LABS: ALT 11 U/L (7-52); AST 12 U/L (13-39); Albumin 4.2 g/dL (3.2-5.2); Albumin/Globulin Ratio 1.7 (1-3); Alkaline Phosphatase 32 U/L (34-104); Anion Gap 5 mmol/L (2-11); BUN/Creatinine Ratio 15.1 (8-20); Blood Urea Nitrogen 11 mg/dL (6-24); CO2 Carbon Dioxide 27 mmol/L (22-32); Calcium 9.7 mg/dL (8.6-10.3); Chloride 108 mmol/L (101-111); EGFR African American 106.3 (>60); EGFR Non-African American 87.9 (>60); Globulin 2.5 g/dL (2-4); Glucose 95 mg/dL (70-100); Sodium 140 mmol/L (135-145); Total Protein 6.7 g/dL (6.4-8.9)
[2019-04-13 15:26] LABS: HCG Pregnancy < 0.60 mIU/mL
[2019-04-13 15:34] LABS: Urine Appearance Cloudy; Urine Bilirubin Negative (Negative); Urine Blood Negative (Negative); Urine Color Yellow; Urine Glucose Negative (Negative); Urine Ketones Negative (Negative); Urine Nitrite Negative (Negative); Urine Protein Negative (Negative); Urine Specific Gravity 1.012 (1.010-1.030); Urine Urobilinogen Negative (Negative)
[2019-04-13 15:44] LABS: Acetaminophen < 15 mcg/mL; Alcohol < 10 mg/dL (<10); Salicylate < 2.50 mg/dL (<30)
[2019-04-13 15:53] LABS: Urine Benzodiazepine Screen None Detected (None Detect); Urine Opiates Screen None Detected (None Detect)
[2019-04-13 15:59] LABS: TSH (Thyroid Stimulating Horm) 0.58 mcIU/mL (0.34-5.60)
[2019-04-13] MEDS ORDERED: hydrOXYzine HCL TAB* 50 MG PO ONE (16:06)
[2019-04-13] MEDS ORDERED: Ibuprofen TAB* 400 MG PO ONE (16:06)
[2019-04-13] MEDS ORDERED: Nicotine* 2MG (FRUIT FLAVOR) GUM PO PRN (18:17)
--- NOTE | 2019-04-13 19:16 | ED ---
Progress - Progress Note Progress Note: Patient is received as a sign out from Dr. Hackett to Dr. Calderon at 1900 04/13/19 shift change pending MHE and disposition of this mental health patient. 2114 - Patient's case had been reviewed by Dr. Elkins, patient will be discharged to home. Course/Dx - Course Course Of Treatment: Patient is received as a sign out from Dr. Hackett to Dr. Calderon at 1900 04/13/19 shift change pending MHE and disposition of this mental health patient. 2114 - Patient's case had been reviewed by Dr. Elkins, patient will be discharged to home. - Diagnoses Provider Diagnoses: Anxiety - Provider Notifications Discussed Care Of Patient With: Denys Elkins Time Discussed With Above Provider: 21:15 Instructed by Provider To: Other - 2114 - Patient's case had been reviewed by Dr. Elkins, patient will be discharged to home. Discharge - Sign-Out/Discharge Documenting (check all that apply): Patient Departure - discharge Patient Received Moderate/Deep Sedation with Procedure: No - Discharge Plan Condition: Stable Disposition: HOME Patient Education Materials: Anxiety (ED) Referrals: Chari Carrasquillo MD [Primary Care Provider] - - Attestation Statements Document Initiated by Scribe: Yes Documenting Scribe: BANDAR ROSENBERG Provider For Whom Carylibclaus is Documenting (Include Credential): JAXON CALDERON MD Scribe Attestation: BANDAR Rodriguez, scribed for JAXON CALDERON MD on 04/14/19 at 0137. Status of Scribe Document: Ready
[2019-04-13 21:33] VITALS: BP 120/76
== END 2019-04-13 21:31 | disposition home or self-care (01) ==
LOC: ED 13:23
DX: F41.9 Anxiety disorder, unspecified (principal); F19.11 Other psychoactive substance abuse, in remission; Z87.891 Personal history of nicotine dependence
CPT/HCPCS: 36415; 80053; 80307; 80320; 80329; 81003; 83605; 83690; 84443; 84702; 85025; 93005; 99284; A9270-GY; G0480

== ENCOUNTER 2019-04-14 03:26 | Emergency (ER) | payer MEDICARE, MEDICAID ==
[2019-04-14] MEDS ORDERED: Nicotine* 4MG (FRUIT FLAVOR) GUM PO ONE (04:22)
[2019-04-14] MEDS ORDERED: ALPRAZolam TAB* 0.5 MG PO ONE (05:59)
[2019-04-14 06:17] VITALS: BP 121/84
--- NOTE | 2019-04-14 06:39 | ED ---
Psychiatric Complaint - HPI Summary HPI Summary: Patient is a 43 y/o F presenting to ED via EMS with complaints of SI/HI. She was seen at [facility] 04/13[place], received MHE and was discharged to home with anxiety Dx. Patient reports SI with no plan. She additionally reports decreased appetite and sleep disturbance. Patient claims that she was HI earlier but does not elaborate any further on this. On triage, nothing is noted to aggravate/ alleviate Sx. Home medications and allergies are reviewed. - History Of Current Complaint Chief Complaint: EDSuicidal Time Seen by Provider: 04/14/19 03:42 Hx Obtained From: Patient Onset/Duration: Still Present Timing: Constant Character: Depressed Aggravating Factor(s): Nothing Alleviating Factor(s): Nothing Associated Signs And Symptoms: Positive: Sleep Disturbance, Appetite Change Has Suicidal: Reports: Thoughts. Denies: With A Plan Has Homicidal: Reports: Thoughts - Allergies/Home Medications Allergies/Adverse Reactions: Allergies Allergy/AdvReac Type Severity Reaction Status Date / Time morphine Allergy Rash Verified 04/13/19 13:30 PMH/Surg Hx/FS Hx/Imm Hx Endocrine/Hematology History: Denies: Hx Bone Marrow Disease, Hx Diabetes, Hx Sickle Cell Disease, Hx Thyroid Disease, Hx Anemia Cardiovascular History: Reports: Other Cardiovascular Problems/Disorders - ATRIAL SEPTAL DEFECT REPAIR Denies: Hx Angina, Hx Cardiomegaly, Hx Congestive Heart Failure, Hx Coronary Artery Disease, Hx Hypertension, Hx Pacemaker/ICD, Hx Peripheral Vascular Disease, Hx Rheumatic Fever, Hx Valvular Heart Disease Respiratory History: Denies: Hx Asthma, Hx Pulmonary Edema, Hx Pulmonary Embolism, Hx Sleep Apnea , Other Respiratory Problems/Disorders GI History: Denies: Hx Cirrhosis, Hx Crohn's Disease, Hx Gastroesophageal Reflux Disease , Hx Hiatal Hernia, Hx Irritable Bowel, Hx Jaundice, Hx Ulcer, Other GI Disorders History: Reports: Hx Kidney Stones - HX OF WHICH SHE PASSED Denies: Hx Kidney Infection, Other Problems/Disorders Musculoskeletal History: Reports: Hx Arthritis - TOES, Hx Bursitis - RIGHT SHOULDER, Hx Tendonitis - RIGHT SHOULDER Denies: Other Musculoskeletal History Sensory History: Reports: Hx Contacts or Glasses Denies: Hx Cataracts, Hx Glaucoma, Hx Hearing Aid Opthamlomology History: Reports: Hx Contacts or Glasses Denies: Hx Cataracts, Hx Glaucoma Neurological History: Reports: Hx Headaches, Hx Migraine Denies: Hx Seizures, Other Neuro Impairments/Disorders Psychiatric History: Reports: Hx Anxiety, Hx Eating Disorder, Hx Depression, Hx Panic Disorder, Hx Inpatient Treatment, Hx Community Mental Health Tx, Hx Bipolar Disorder, Hx Substance Abuse Denies: Hx of Violent Episodes Against Others - Cancer History Hx Chemotherapy: No - Surgical History Surgery Procedure, Year, and Place: 1998 CSECTION,. 2012 LAPAROSCOPIC CHOLECYSTECTOMY,. 2012 APPENDECTOMY, [facility]. 07/2014 ATRIAL SEPTAL DEFECT (ASD) - REPAIRED W/ PATCH, SAFE FOR 1.5T, [facility] Anesthesia Reactions: No Infectious Disease History: No Infectious Disease History: Denies: Hx Hepatitis, Traveled Outside the [place] in Last 30 Days - Family History Known Family History: Negative: Respiratory Disease - Social History Alcohol Use: Daily Alcohol Amount: none x 2 years Substance Use Type: Reports: Marijuana Substance Use Comment - Amount & Last Used: last used alcohol and marijuana 12 days ago Hx Tobacco Use: Yes - EXSMOKER Smoking Status (MU): Light Every Day Tobacco Smoker Type: Cigarettes Amount Used/How Often: 1 PPD Length of Time of Smoking/Using Tobacco: 20 YEARS Have You Smoked in the Last Year: No Review of Systems Constitutional: Other - positive - sleep disturbance Gastrointestinal: Other - positive - decreased appetite Psychological: Other - positive - SI/HI All Other Systems Reviewed And Are Negative: Yes Physical Exam - Summary Physical Exam Summary: VITAL SIGNS: Reviewed. GENERAL: Patient is a well-developed and nourished female who is lying comfortable in the stretcher. Patient is not in any acute respiratory distress. HEAD AND FACE: No signs of trauma. No ecchymosis, hematomas or skull depressions. No sinus tenderness. EYES: PERRLA, EOMI x 2, No injected conjunctiva, no nystagmus. EARS: Hearing grossly intact. Ear canals and tympanic membranes are within normal limits. MOUTH: Oropharynx within normal limits. NECK: Supple, trachea is midline, no adenopathy, no JVD, no carotid bruit, no c- spine tenderness, neck with full ROM CHEST: Symmetric, no tenderness at palpation LUNGS: Clear to auscultation bilaterally. No wheezing or crackles. CVS: Regular rate and rhythm, S1 and S2 present, no murmurs or gallops appreciated. ABDOMEN: Soft, non-tender. No signs of distention. No rebound no guarding, and no masses palpated. Bowel sounds are normal. EXTREMITIES: FROM in all major joints, no edema, no cyanosis or clubbing. NEURO: Alert and oriented x 3. No acute neurological deficits. Speech is normal and follows commands. SKIN: Dry and warm Triage Information Reviewed: Yes Vital Signs On Initial Exam: Initial Vitals Temp Pulse Resp BP Pulse Ox 98.5 F 70 18 115/73 97 04/14/19 03:44 04/14/19 03:44 04/14/19 03:44 04/14/19 03:44 04/14/19 03:44 Vital Signs Reviewed: Yes Diagnostics - Vital Signs Vital Signs Temp Pulse Resp BP Pulse Ox 04/14/19 06:16 98.7 F 82 18 121/84 96 04/14/19 06:11 18 04/14/19 03:44 98.5 F 70 18 115/73 97 - Laboratory Lab Statement: Any lab studies that have been ordered have been reviewed, and results considered in the medical decision making process. Re-Evaluation - Re-Evaluation First Eval Re-Evaluation Time: 04:05 Comment: Patient medically cleared for MHE. Course/Dx - Course Course Of Treatment: Patient is a 43 y/o F presenting to ED via EMS with complaints of SI/HI. She was seen at [facility] 04/13/19, received MHE and was discharged to home with anxiety Dx. Patient reports SI with no plan. She additionally reports decreased appetite and sleep disturbance. Patient claims that she was HI earlier but does not elaborate any further on this. Physical exam is unremarkable. Patient was medically cleared for MHE. 0557 - Patient's case was reviewed by Dr. Elkins, patient will be discharged to home. During ED course, patient received nicotine gum 4 mg PO and Xanax 0.5 mg PO. - Differential Dx/Clinical Impression Provider Diagnosis: Anxiety - Physician Notifications Discussed Care Of Patient With: Denys Elkins Time Discussed With Above Provider: 05:57 Instructed by Provider To: Other - 0557 - Patient's case was reviewed by Dr. Elkins, patient will be discharged to home. Discharge - Sign-Out/Discharge Documenting (check all that apply): Patient Departure - DISCHARGE Patient Received Moderate/Deep Sedation with Procedure: No - Discharge Plan Condition: Stable Disposition: HOME Referrals: Chari Carrasquillo MD [Primary Care Provider] - Additional Instructions: Per completion of a mental health evaluation, you are cleared for release and do not require inpatient psychiatric hospitalization at this time. Please go to nearest emergency room or call 911 if safety concerns arise or condition worsens. You need to follow up with outpatient counseling services: [facility] [phone] [place] [id number] Walk-in hours are Sunday - Sunday, 9am - 2:30pm. Important Phone Numbers: [facility] ph:[phone] Suicide Prevention and Crisis Services ph:[phone] National Suicide Prevention Lifeline ph:[phone] (7872) [facility] ph:[phone] [facility] ph:[phone] Alcohol and Drug Drying Tumbler Operator (ADC) ph:[phone] Alcoholics Anonymous ph:[phone] [facility] ph:[phone] [facility] ph:[phone] - Attestation Statements Document Initiated by Scribe: Yes Documenting Scribe: BANDAR ROSENBERG Provider For Whom Scribe is Documenting (Include Credential): JAXON CHRIS MD Scribe Attestation: I, BANDAR ROSENBERG, scribed for JAXON CHRIS MD on 04/14/19 at 0641. Status of Scribe Document: Ready
== END 2019-04-14 06:16 | disposition home or self-care (01) ==
LOC: ED 03:26
DX: F41.9 Anxiety disorder, unspecified (principal); F17.210 Nicotine dependence, cigarettes, uncomplicated
CPT/HCPCS: 99284; A9270-GY

== ENCOUNTER 2019-05-17 11:08 | Emergency (ER) | payer MEDICARE, MEDICAID ==
[2019-05-17] MEDS: Acetaminophen TAB* 325 MG PO ONE ×2 (12:22→12:30)
[2019-05-17] MEDS ORDERED: Ibuprofen TAB* 600 MG PO ONE (12:29)
--- NOTE | 2019-05-17 12:37 | ED ---
Lower Extremity - HPI Summary HPI Summary: This patient is a 43 year old F presenting to ED with a chief complaint of sudden onset left leg pain since this 0600 morning. The pain is described as sharp and stabbing lasting 5 minutes. The pain was in the back of her calf where she has a bulging vein and lipoma. 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 Patient was sent here by her PCP for a DVT US. Patient has a history of DVT but she does not take medications for it anymore. Patient does not remember much about the clot. In the room, patient states she felt something rupture in the calf, since it doesnt feel as solid. The patient rates the pain 3/10 in severity. Symptoms aggravated by nothing. Symptoms alleviated by nothing. Patient denies fever. - History of Current Complaint Chief Complaint: EDExtremityLower Stated Complaint: LEFT LEG INJURY Time Seen by Provider: 05/17/19 11:12 Hx Obtained From: Patient Onset of Pain: Hours - 0600 this morning Onset/Duration: Still Present Severity Initially: Severe Severity Currently: Mild Pain Intensity: 3 Pain Scale Used: 0-10 Numeric Timing: Constant, Lasting Hours - Since 0600 this morning Location: Is Discrete @ - LEft calf Character Of Pain: Sharp - Stabbing Associated Signs And Symptoms: Negative: Fever Aggravating Factor(s): Nothing Alleviating Factor(s): Nothing Related History: Other - History DVT - Allergies/Home Medications Allergies/Adverse Reactions: Allergies Allergy/AdvReac Type Severity Reaction Status Date / Time morphine Allergy Rash Verified 05/17/19 11:11 Home Medications: Home Medications Ascorbic Acid/Ascorbate Sodium [Vitamin C 250 mg Tablet Chew] 250 mg PO DAILY [History Confirmed 05/17/19] Iron 1 tab PO DAILY 05/17/19 [History Confirmed 05/17/19] Magnesium 1 tab PO DAILY 05/17/19 [History Confirmed 05/17/19] Sertraline* [Zoloft*] 50 mg PO DAILY 05/17/19 [History Confirmed 05/17/19] PMH/Surg Hx/FS Hx/Imm Hx Endocrine/Hematology History: Denies: Hx Bone Marrow Disease, Hx Diabetes, Hx Sickle Cell Disease, Hx Thyroid Disease, Hx Anemia Cardiovascular History: Reports: Other Cardiovascular Problems/Disorders - ATRIAL SEPTAL DEFECT REPAIR Denies: Hx Angina, Hx Cardiomegaly, Hx Congestive Heart Failure, Hx Coronary Artery Disease, Hx Hypertension, Hx Pacemaker/ICD, Hx Peripheral Vascular Disease, Hx Rheumatic Fever, Hx Valvular Heart Disease Respiratory History: Denies: Hx Asthma, Hx Pulmonary Edema, Hx Pulmonary Embolism, Hx Sleep Apnea , Other Respiratory Problems/Disorders GI History: Denies: Hx Cirrhosis, Hx Crohn's Disease, Hx Gastroesophageal Reflux Disease , Hx Hiatal Hernia, Hx Irritable Bowel, Hx Jaundice, Hx Ulcer, Other GI Disorders History: Reports: Hx Kidney Stones - HX OF WHICH SHE PASSED Denies: Hx Kidney Infection, Other Problems/Disorders Musculoskeletal History: Reports: Hx Arthritis - TOES, Hx Bursitis - RIGHT SHOULDER, Hx Tendonitis - RIGHT SHOULDER Denies: Other Musculoskeletal History Sensory History: Reports: Hx Contacts or Glasses Denies: Hx Cataracts, Hx Glaucoma, Hx Hearing Aid Opthamlomology History: Reports: Hx Contacts or Glasses Denies: Hx Cataracts, Hx Glaucoma Neurological History: Reports: Hx Headaches, Hx Migraine Denies: Hx Seizures, Other Neuro Impairments/Disorders Psychiatric History: Reports: Hx Anxiety, Hx Eating Disorder, Hx Depression, Hx Panic Disorder, Hx Inpatient Treatment, Hx Community Mental Health Tx, Hx Bipolar Disorder, Hx Substance Abuse Denies: Hx of Violent Episodes Against Others - Cancer History Hx Chemotherapy: No - Surgical History Surgery Procedure, Year, and Place: 1998 CSECTION,. 2012 LAPAROSCOPIC CHOLECYSTECTOMY,. 2012 APPENDECTOMY, [facility]. 07/2014 ATRIAL SEPTAL DEFECT (ASD) - REPAIRED W/ PATCH, SAFE FOR [address] [place] [address] Anesthesia Reactions: No Infectious Disease History: No Infectious Disease History: Denies: Hx Hepatitis, Traveled Outside the [place] in Last 30 Days - Family History Known Family History: Negative: Respiratory Disease - Social History Alcohol Use: Daily Alcohol Amount: none in 3 years Hx Substance Use: No Substance Use Type: Reports: None Substance Use Comment - Amount & Last Used: last used alcohol and marijuana 12 days ago Hx Tobacco Use: Yes - EXSMOKER Smoking Status (MU): Light Every Day Tobacco Smoker Type: Cigarettes Amount Used/How Often: 1 PPD Length of Time of Smoking/Using Tobacco: 20 YEARS Have You Smoked in the Last Year: No Review of Systems Negative: Fever Musculoskeletal: Other - Sharp stabbling pain in left calf All Other Systems Reviewed And Are Negative: Yes Physical Exam - Summary Physical Exam Summary: Constitutional: Well-developed, Well-nourished, Alert. (-) Distressed Skin: Warm, Dry HENT: Normocephalic; Atraumatic Eyes: Conjunctiva normal Neck: Musculoskeletal ROM normal neck. (-) JVD, (-) Stridor Cardio: Rhythm regular, rate normal, Heart sounds normal; Intact distal pulses; Radial pulses are 2+ and symmetric. (-) Murmur Pulmonary/Chest wall: Effort normal. (-) Respiratory distress, (-) Wheezes, (-) Rales Abd: Soft, (-) tenderness, (-) Distension, (-) Guarding, (-) Rebound Musculoskeletal: Left medial calf has a 3x4 cm soft tissue mass and varicose vein, 2+ DP pulse Lymph: (-) Cervical adenopathy Neuro: Alert, Oriented x3 Psych: Mood and affect Normal Triage Information Reviewed: Yes Vital Signs On Initial Exam: Initial Vitals Temp Pulse Resp BP Pulse Ox 99.5 F 88 19 126/76 98 05/17/19 11:09 05/17/19 11:09 05/17/19 11:09 05/17/19 11:09 05/17/19 11:09 Vital Signs Reviewed: Yes Diagnostics - Vital Signs Vital Signs Temp Pulse Resp BP Pulse Ox 05/17/19 11:09 99.5 F 88 19 126/76 98 - Laboratory Lab Statement: Any lab studies that have been ordered have been reviewed, and results considered in the medical decision making process. - Ultrasound DVT Ultrasound Interpretation Completed By: Radiologist Summary of Ultrasound Findings: No sonographic evidence of deep vein thrombosis. Dr. Edgar has reviewed this radiology report. Re-Evaluation - Re-Evaluation First Eval Re-Evaluation Time: 13:03 Comment: Discussed results with patient. Patient will be discharged home with dx of leg pain and lipoma. She would like a referral to a pain specialist. Patient agrees with and understands this plan. Lower Extremity Course/Dx - Course Assessment/Plan: 43-year-old female with a history of a DVT as well as lipoma in the left calf presents with left calf pain for 1 day. - Physical exam with a 3x 4 cm soft tissue mass consistent with a lipoma, and a varicose vein. The patient's history of DVT and sudden onset of leg pain will check an ultrasound. Given Motrin for pain control - Diagnoses Provider Diagnoses: Leg pain, Lipoma Discharge - Sign-Out/Discharge Documenting (check all that apply): Patient Departure - Discharge Patient Received Moderate/Deep Sedation with Procedure: No - Discharge Plan Condition: Stable Disposition: HOME Patient Education Materials: Leg Pain (ED), Lipoma (ED) Referrals: Tony Cotto MD [Medical Doctor] - 3 Days (pain management) Chari Carrasquillo MD [Primary Care Provider] - 3 Days Additional Instructions: You were seen in the emergency department for left leg pain Ultrasound did not show any evidence of blood clot. We recommend that you repeat this in 1 week. Please take Motrin 600 mg as needed every 8 hours for pain or Tylenol 500 mg as needed every hours for pain If any studies were not completed at the time of discharge you will be called with the relevant results. Please follow up with your primary care doctor in next 2-3 days and return to emergency department for worsening or concerning symptoms. - Billing Disposition and Condition Condition: STABLE Disposition: Home - Attestation Statements Document Initiated by Angie: Yes Documenting Scribe: Baljinder Ríos Provider For Whom Angie is Documenting (Include Credential): Lex Edgar MD Scribe Attestation: I, Baljinder Ríos, scribed for Lex Edgar MD on 05/17/19 at 1308. Scribe Documentation Reviewed: Yes Provider Attestation: The documentation as recorded by the Baljinder valencia accurately reflects the service I personally performed and the decisions made by me, Lex Edgar MD Status of Scribe Document: Viewed
[2019-05-17] MEDS ORDERED: oxyCODONE/Acetamin 5/325 MG* TAB PO ONE (12:40)
[2019-05-17 13:17] VITALS: BP 122/83
== END 2019-05-17 13:15 | disposition home or self-care (01) ==
LOC: ED 11:08
DX: M79.605 Pain in left leg (principal); D17.24 Benign lipomatous neoplasm of skin and subcutaneous tissue of left leg; Z88.5 Allergy status to narcotic agent; Z86.718 Personal history of other venous thrombosis and embolism; Z79.899 Other long term (current) drug therapy; Z87.891 Personal history of nicotine dependence
CPT/HCPCS: 99282; A9270-GY

== ENCOUNTER 2019-05-18 19:52 | Emergency (ER) | payer MEDICARE, MEDICAID ==
--- NOTE | 2019-05-18 21:30 | ED ---
HPI Chest Pain - HPI Summary HPI Summary: This patient is a 43 year old F presenting to [facility] with a chief complaint of sternal CP since today. She states that she has a L leg lipoma that is not being helped by her pain medications and the pain started today. She was here on 05/17/19 for the lipoma. The pain is rated a 5/10 in severity. She denies any radiating pain. Pt denies any fever, chills, erythema of eyes, sore throat, SOB , cough, abdominal pain, N/V, dysuria, hematuria, myalgia, edema, rash, or dizziness. She stated that when she talked to her doctor she was concerned about how her US was conducted. She stated no aggravating or alleviating factors and has a PMHx of a lipoma on her leg. - History of Current Complaint Chief Complaint: EDChestPainROMI Time Seen by Provider: 05/18/19 21:11 Hx Obtained From: Patient Onset/Duration: Started Hours Ago, Still Present Timing: Constant Initial Severity: Moderate Current Severity: Moderate Pain Intensity: 5 Pain Scale Used: 0-10 Numeric Chest Pain Location: Mid Sternal Chest Pain Radiates: No Aggravating Factor(s): Nothing Alleviating Factor(s): Nothing Associated Signs and Symptoms: Positive: Negative - radiating pain, fever, chills, erythema of eyes, sore throat, SOB, cough, abdominal pain,, Chest Pain - mid sternal. Negative: Dizziness, Shortness of Breath, Fever, Chills, Nausea , Cough, Abdominal Pain, Vomiting, Edema - Additional Pertinent History Primary Care Physician: [id number] - Allergy/Home Medications Allergies/Adverse Reactions: Allergies Allergy/AdvReac Type Severity Reaction Status Date / Time morphine Allergy Rash Verified 05/18/19 19:58 PMH/Surg Hx/FS Hx/Imm Hx Previously Healthy: No Endocrine/Hematology History: Denies: Hx Bone Marrow Disease, Hx Diabetes, Hx Sickle Cell Disease, Hx Thyroid Disease, Hx Anemia Cardiovascular History: Reports: Other Cardiovascular Problems/Disorders - ATRIAL SEPTAL DEFECT REPAIR Denies: Hx Angina, Hx Cardiomegaly, Hx Congestive Heart Failure, Hx Coronary Artery Disease, Hx Hypertension, Hx Pacemaker/ICD, Hx Peripheral Vascular Disease, Hx Rheumatic Fever, Hx Valvular Heart Disease Respiratory History: Denies: Hx Asthma, Hx Pulmonary Edema, Hx Pulmonary Embolism, Hx Sleep Apnea , Other Respiratory Problems/Disorders GI History: Denies: Hx Cirrhosis, Hx Crohn's Disease, Hx Gastroesophageal Reflux Disease , Hx Hiatal Hernia, Hx Irritable Bowel, Hx Jaundice, Hx Ulcer, Other GI Disorders History: Reports: Hx Kidney Stones - HX OF WHICH SHE PASSED Denies: Hx Kidney Infection, Other Problems/Disorders Musculoskeletal History: Reports: Hx Arthritis - TOES, Hx Bursitis - RIGHT SHOULDER, Hx Tendonitis - RIGHT SHOULDER Denies: Other Musculoskeletal History Sensory History: Reports: Hx Contacts or Glasses Denies: Hx Cataracts, Hx Glaucoma, Hx Hearing Aid Opthamlomology History: Reports: Hx Contacts or Glasses Denies: Hx Cataracts, Hx Glaucoma Neurological History: Reports: Hx Headaches, Hx Migraine Denies: Hx Seizures, Other Neuro Impairments/Disorders Psychiatric History: Reports: Hx Anxiety, Hx Eating Disorder, Hx Depression, Hx Panic Disorder, Hx Inpatient Treatment, Hx Community Mental Health Tx, Hx Bipolar Disorder, Hx Substance Abuse Denies: Hx of Violent Episodes Against Others - Cancer History Hx Chemotherapy: No - Surgical History Surgery Procedure, Year, and Place: 1998 CSECTION,. 2012 LAPAROSCOPIC CHOLECYSTECTOMY,. 2012 APPENDECTOMY, [facility] [place]. 07/2014 ATRIAL SEPTAL DEFECT (ASD) - [facility] Reactions: No Infectious Disease History: No Infectious Disease History: Denies: Hx Hepatitis, Traveled Outside the [place] in Last 30 Days - Family History Known Family History: Positive: Cardiac Disease - heart attacks paternal and maternal Negative: Respiratory Disease - Social History Occupation: Employed Part-time Lives: Alone Alcohol Use: None Alcohol Amount: none in 3 years Hx Substance Use: No Substance Use Type: Reports: None Substance Use Comment - Amount & Last Used: last used alcohol and marijuana 12 days ago Hx Tobacco Use: Yes - [employer] Smoking Status (MU): Light Every Day Tobacco Smoker Type: Cigarettes Amount Used/How Often: 1 PPD Length of Time of Smoking/Using Tobacco: 20 YEARS Have You Smoked in the Last Year: No Review of Systems Negative: Fever, Chills Negative: Erythema Negative: Sore Throat Positive: Chest Pain - mid sternal Positive: Shortness Of Breath, Cough Positive: Abdominal Pain, Vomiting, Nausea Positive: dysuria, hematuria Positive: Myalgia, Edema Positive: Rash, Other - Lipoma on L leg Neurological: Negative - dizziness All Other Systems Reviewed And Are Negative: Yes Physical Exam - Summary Physical Exam Summary: Soft tissue swelling over the L proximal calf, consistent with a Lipoma. Triage Information Reviewed: Yes Vital Signs On Initial Exam: Initial Vitals Temp Pulse Resp BP Pulse Ox 98.8 F 77 16 127/74 96 05/18/19 19:54 05/18/19 19:54 05/18/19 19:54 05/18/19 19:54 05/18/19 19:54 Vital Signs Reviewed: Yes Diagnostics - Vital Signs Vital Signs Temp Pulse Resp BP Pulse Ox 05/18/19 19:54 98.8 F 77 16 127/74 96 - Laboratory Result Diagrams: 05/18/19 23:46 05/18/19 23:46 Lab Statement: Any lab studies that have been ordered have been reviewed, and results considered in the medical decision making process. - EKG 2000 Cardiac Rate: NL - 79 BPM EKG Rhythm: Sinus Rhythm ST Segment: Normal Ectopy: None Summary of EKG Findings: Sinus rhythm of 79 BPM with Normal axis. Normal interval. No ischemic changes. Interpreted by Dr. Calderon at 200305/18/19. Re-Evaluation - Re-Evaluation First Eval Re-Evaluation Time: 00:19 Change: Improved Comment: Pt stated that she was feeling better and agreed to a PE which found no abnormalities other than soft tissue swelling on her L calf with is consistent with a lipoma. Chest Pain Course/Dx - Course Course Of Treatment: This pt is a 43 y/o F presenting to [facility] with a CC of angina. Her PE found that she had a Soft tissue swelling over the L proximal calf, consistent with a Lipoma. Her EKG shows a Sinus rhythm of 79 BPM with Normal axis. Normal interval. No ischemic changes. She will be discharged home with a Dx of chest pain and be leaving AMA. She was informed of the risks which included . Upon presentation of her discharge paperwork the pt stated that she would like to be treated and will not be leaving AMA. After her lab tests have concluded with no abnormal values the pt will be sent home with atypical chest pain. - Diagnoses Provider Diagnoses: Atypical chest pain Discharge - Sign-Out/Discharge Documenting (check all that apply): Patient Departure - discharge Patient Received Moderate/Deep Sedation with Procedure: No - Discharge Plan Condition: Stable Disposition: HOME Patient Education Materials: Chest Pain (ED) Referrals: Chari Carrasquillo MD [Primary Care Provider] - 2 Days Additional Instructions: Please return to the emergency department for any new or worsening symptoms. Follow up with your primary care provider in 2-3 days. - Attestation Statements Document Initiated by Scribe: Yes Documenting Scribe: Ramón Flores Provider For Whom Scribe is Documenting (Include Credential): Glynn Calderon MD Scribe Attestation: IRamón, scribed for Glynn Calderon MD on 05/19/19 at 0017. Status of Scribe Document: Ready
[2019-05-18] MEDS ORDERED: Ibuprofen TAB* 800 MG PO ONE (23:00)
[2019-05-18 23:52] LABS: ABS Basophils 0.1 10^3/ul (0-0.2); ABS Eosinophils 0.1 10^3/ul (0-0.6); ABS Lymphocytes 2.8 10^3/ul (1.0-4.8); ABS Monocytes 0.4 10^3/ul (0-0.8); Eosinophil % 1.3 %; Hematocrit 42 % (35-47); Hemoglobin 14.3 g/dL (12.0-16.0); Mean Corpuscular HGB Conc 35 g/dL (31-36); Mean Corpuscular Hemoglobin 30 pg (27-31); Mean Corpuscular Volume 87 fL (80-97); Mean Platelet Volume 7.6 fL (7.4-10.4); Nucleated Red Blood Cells % 0.1; Platelet Count 253 10^3/uL (150-450); Red Cell Distribution Width 13 % (10-15); White Blood Count 7.4 10^3/uL (3.5-10.8)
[2019-05-19 00:10] LABS: Albumin 4.2 g/dL (3.2-5.2); Albumin/Globulin Ratio 1.7 (1-3); BUN/Creatinine Ratio 11.6 (8-20); Calcium 8.9 mg/dL (8.6-10.3); EGFR African American 113.4 (>60); EGFR Non-African American 93.8 (>60); Globulin 2.5 g/dL (2-4); Potassium 3.7 mmol/L (3.5-5.0); Total Bilirubin 0.4 mg/dL (0.2-1.0); Total Protein 6.7 g/dL (6.4-8.9)
[2019-05-19 00:31] VITALS: BP 0/0
== END 2019-05-19 00:29 | disposition home or self-care (01) ==
LOC: ED 19:52
DX: R07.89 Other chest pain (principal); D17.24 Benign lipomatous neoplasm of skin and subcutaneous tissue of left leg; Z88.5 Allergy status to narcotic agent; Z87.891 Personal history of nicotine dependence
CPT/HCPCS: 36415; 80053; 84484; 85025; 93005; 99282; A9270-GY

== ENCOUNTER 2019-05-20 14:18 | Emergency (ER) | payer MEDICARE, MEDICAID ==
--- OUTSIDE RECORDS SUMMARY | 2019-05-20 14:32 | XMS REPORT | Continuity of Care Document ---
:1975 External Reference #:[id number] Author Name Ifrah Summers Care Team Providers Name Role Phone Chari Carrasquillo MD Primary Care Physician Unavailable Payers Date Identification Numbers Payment Provider Subscriber Effective: 2016 Policy Number: [id number] [facility] Medicare Solutions Ivy Alva PayID: [id number] [address] [address] [place] [address] Effective: 2014 Policy Number: [id number] Medicare Ivy Alva Expires: 2016 PayID: [id number] [address] [place] [address] Policy Number: [id number] Medicaid Ivy Alva Group Name: 1 1 [address] PayID: [id number] [place] [address] Problems Active Problems Provider Date Calcific tendinitis [...] Heart Disease Father Unknown Father due to [place] () Mother No Current Problems not in contact 2019 Siblings 4 Social History Type Date Description Comments Sex Unknown Marital Status Single Lives With Alone Occupation Unemployed Hand Dominance Right-handed Tobacco Use Start: Unknown Light tobacco smoker (10 or fewer cigarettes/day) ETOH Use Has consumed alcohol abuse up to 2004 in the past Recreational Drug Use Former Drug User h/o MJ and cocaine. No longer since 2003 Tobacco Use Start: Unknown End: Patient is a former Quit Oct 2016, Unknown smoker restarted 2019 smoker less than 10 Cigs per day as well as used a vaporizer. Smoking Status Reviewed: 05/20/19 Patient is a former Quit Oct 2016, smoker restarted 2019 smoker less than 10 Cigs per day as well as used a vaporizer. Exercise Type/Frequency Exercises rarely walking Allergies, Adverse Reactions, Alerts Active Allergies Reaction Severity Comments Date Morphine Hives, Rash on left arm 05/25/2014 Medications Active Medications SIG Qnty Indications Ordering Provider Date Crutches-Aluminum Use as needed 2units D17.24 Rachel Pope MD 05/20/2019 Misc Dx-d17.24 05/20/2019 Oxycodone-Acetaminoph take one tablet 2tabs Rachel Pope MD 05/19/2019 en every 12 hours as 5-325mg Tablets needed for severe pain Hydroxyzine HCL 1-2 tablets QHS, 60tabs G47.00 Rachel Pope MD 05/14/2019 25mg uses prn Tablets Sertraline HCL Take 1 Tablet By 30tabs F41.9 Rachel Pope MD 04/16/2019 50mg Mouth Every Day Tablets Medical Compression Wear daily 3Pairs I83.812 Alton Quezada NP 04/09/2019 Stockings/Unisex/30-4 0MMHG/Open/Thigh Misc Vitamin C 1 by mouth every Unknown 500mg day Capsules Vitamin D High 1 by mouth every Unknown Potency day 1000Unit Capsules mm Vitamin B12 Unknown 5000mcg Tablets Dispers History Medications No Active Unknown 03/04/2019 - Medications 03/04/2019 Baclofen take 1/2 tab 90tabs Alton Quezada NP 09/23/2018 - 10mg Tablets every 8 hours. 03/03/2019 May increase by 1/2 tablet three times daily every other day to a maximum of 20mg tid. Citalopram Take One Tablet 30tabs Alton Quezada NP 11/23/2017 - Hydrobromide By Mouth Every 03/03/2019 20mg Day Tablets Hydroxyzine HCL 1-2 tablets QHS 60tabs G47.00 Alton Quezada NP 11/23/2017 - 25mg 09/09/2018 Tablets Compression Wear daily 1units I83.92 Sly Rhoades, 11/21/2016 - Stockings M.D. 11/23/2017 Misc Jublia apply to the 12ml L60.8 Sly hRoades, 11/21/2016 - 10% Solution surface of each M.D. 11/23/2017 affected nail after showering and allowing toes to dry - daily No Active Unknown 10/24/2016 - Medications 11/21/2016 Oxycodone-Acetaminop 1-2 tabs every 60tabs M75.31 Luciana Hernandez, 2015 - hen 4-6 hours. do not 12/21/2015 5-325mg Tablets combine with tylenol Oxycodone-Acetaminop 1-2 tabs by mouth 90tabs Sly Carlton 11/05/2015 - hen every 4-6 hours M.D. 12/21/2015 5-325mg Tablets as needed pain Percocet take 1 tabs as 90tabs M75.31 Luciana Hernandez, 10/11/2015 - 5-325mg needed for pain 12/21/2015 Tablets every 6 hours. do not [...] Injection Vital Signs Date Vital Result Comment 05/20/2019 9:52am Height 63 inches 5'3" Weight 136.00 lb Heart Rate 82 /min BP Systolic Sitting 107 mmHg BP Diastolic Sitting 66 mmHg Body Temperature 98.1 F O2 % BldC Oximetry 96 % BMI (Body Mass Index) 24.1 kg/m2 04/16/2019 9:17am Height 63 inches 5'3" Weight 136.00 lb Heart Rate 86 /min BP Systolic Sitting 105 mmHg BP Diastolic Sitting 69 mmHg Body Temperature 97.2 F O2 % BldC Oximetry 98 % BMI (Body Mass Index) 24.1 kg/m2 04/10/2019 8:47am Height 63 inches 5'3" Weight [...] Date Facility Test Result H/L Range Note Comp Metabolic 05/18/2019 [facility] Sodium 136 mmol/L Normal 135-[address] [place] [address] [phone] Potassium 3.7 mmol/L Normal 3.5-5.0 Chloride 107 mmol/L Normal 101-111 Co2 Carbon Dioxide 24 mmol/L Normal 22-32 Anion Gap 5 mmol/L Normal 2-11 Glucose 89 mg/dL Normal 70-100 Blood Urea Nitrogen 8 mg/dL Normal 6-24 Creatinine 0.69 mg/dL Normal 0.51-0.95 BUN/Creatinine Ratio 11.6 Normal 8-20 Calcium 8.9 mg/dL Normal 8.6-10.3 Total Protein 6.7 g/dL Normal 6.4-8.9 Albumin 4.2 g/dL Normal 3.2-5.2 Globulin 2.5 g/dL Normal 2-4 Albumin/Globulin Ratio 1.7 Normal 1-3 Total Bilirubin 0.40 mg/dL Normal 0.2-1.0 Alkaline Phosphatase 36 U/L Normal 34-104 Alt 11 U/L Normal 7-52 Ast 12 U/L Low 13-39 Egfr Non- 93.8 >60 Egfr 113.4 >60 1 Laboratory test 05/18/2019 [facility] Troponin-I 0.00 <0.04 [address] (TnI) ng/[place] [address] [phone] CBC Auto Diff 05/18/2019 [facility] White Blood 7.4 Normal 3.5 -10.[address] Count 10^3/[place] [address] [phone] Red Blood Count 4.80 10^6/uL Normal 3.70-4.87 Hemoglobin 14.3 g/dL Normal 12.0-16.0 Hematocrit 42 % Normal 35-47 Mean Corpuscular Volume 87 fL Normal 80-97 Mean Corpuscular Hemoglobin 30 pg Normal 27-31 Mean Corpuscular HGB Conc 35 g/dL Normal 31-36 Red Cell Distribution Width 13 % Normal 10-15 Platelet Count 253 10^3/uL Normal 150-450 Mean Platelet Volume 7.6 fL Normal 7.4-10.4 Abs Neutrophils 4.0 10^3/uL Normal 1.5-7.7 Abs Lymphocytes 2.8 10^3/uL Normal 1.0-4.8 Abs Monocytes 0.4 10^3/uL Normal 0-0.8 Abs Eosinophils 0.1 10^3/uL Normal 0-0.6 Abs Basophils 0.1 10^3/uL Normal 0-0.2 Abs Nucleated RBC 0.0 10^3/uL Granulocyte % 53.6 % Lymphocyte % 38.0 % Monocyte % 5.9 % Eosinophil % 1.3 % Basophil % 1.2 % Nucleated Red Blood Cells % 0.1 CBC Auto 04/13/2019 [facility] White Blood 8.0 10^3/uL Normal 3.5-10.[address] [place] [address] [phone] Red Blood Count 4.85 10^6/uL Normal 3.70-4.87 Hemoglobin 14.6 g/dL Normal 12.0-16.0 Hematocrit 42 % Normal 35-47 Mean Corpuscular Volume 87 fL Normal 80-97 Mean Corpuscular Hemoglobin 30 pg Normal 27-31 Mean Corpuscular HGB Conc 35 g/dL Normal 31-36 Red Cell Distribution Width 13 % Normal 10-15 Platelet Count 225 10^3/uL Normal 150-450 Mean Platelet Volume 7.6 fL Normal 7.4-10.4 Abs Neutrophils 5.3 10^3/uL Normal 1.5-7.7 Abs Lymphocytes 2.2 10^3/uL Normal 1.0-4.8 Abs Monocytes 0.5 10^3/uL Normal 0-0.8 Abs Eosinophils 0.1 10^3/uL Normal 0-0.6 Abs Basophils 0.1 10^3/uL Normal 0-0.2 Abs Nucleated RBC 0.0 10^3/uL Granulocyte % 65.6 % Lymphocyte % 27.1 % Monocyte % 6.1 % Eosinophil % 0.6 % Basophil % 0.6 % Nucleated Red Blood Cells % 0.1 Laboratory test 04/13/2019 [facility] Lactic Acid 0.4 mmol/L Low 0.5-2.0 3 finding [address] [place] [address] [phone] Urinalysis 04/13/2019 [facility] Urine Color Yellow Profile [address] [place] [address] [phone] Urine Appearance Cloudy Urine Specific [place] 1.012 Normal 1.010-1.030 Urine pH 7.0 Normal 5-9 Urine Urobilinogen Negative Negative Urine Ketones Negative Negative Urine Protein Negative Negative Urine Leukocytes Negative Negative Urine Blood Negative Negative Urine Nitrite Negative Negative Urine Bilirubin Negative Negative Urine Glucose Negative Negative Urine Drug 04/13/2019 [facility] Urine None Detected None Detect SCR ED & [address] A[place] [address] Screen [phone] Urine Barbiturates Screen None Detected None Detect Urine Benzodiazepine Screen None Detected None Detect Urine Cannabinoids Screen None Detected None Detect Urine Cocaine Screen None Detected None Detect Urine Opiates Screen None Detected None Detect Urine Phencyclidine Screen None Detected None Detect 4 Comp Metabolic 04/13/2019 [facility] Sodium 140 mmol/L Normal 135-145 Panel [address] [place] [address] [phone] Potassium 4.0 mmol/L Normal 3.5-5.0 Chloride 108 mmol/L Normal 101-111 Co2 Carbon Dioxide 27 mmol/L Normal 22-32 Anion Gap 5 mmol/L Normal 2-11 Glucose 95 mg/dL Normal 70-100 Blood Urea Nitrogen 11 mg/dL Normal 6-24 Creatinine 0.73 mg/dL Normal 0.51-0.95 BUN/Creatinine Ratio 15.1 Normal 8-20 Calcium 9.7 mg/dL Normal 8.6-10.3 Total Protein 6.7 g/dL Normal 6.4-8.9 Albumin 4.2 g/dL Normal 3.2-5.2 Globulin 2.5 g/dL Normal 2-4 Albumin/Globulin Ratio 1.7 Normal 1-3 Total Bilirubin 0.40 mg/dL Normal 0.2-1.0 Alkaline Phosphatase 32 U/L Low 34-104 Alt 11 U/L Normal 7-52 Ast 12 U/L Low 13-39 Egfr Non- 87.9 >60 Egfr 106.3 >60 5 Laboratory test 04/13/2019 [facility] Lipase 63 U/L Normal 11.0-82.0 finding [address] [place] [address] [phone] HCG < 0.60 mIU/mL 6 Acetaminophen < 15 g/mL 7 Alcohol < 10 mg/dL Normal <10 Salicylate < 2.50 mg/dL <30 TSH (Thyroid Stim Horm) 0.58 mcIU/mL Normal 0.34-5.60 Laboratory 03/12/2019 [facility] D Dimer < 200 Normal Less [address] Quantitative ng/mL Than [address] [place] [address] [phone] C Reactive Protein 1.20 mg/L Normal <8.01 TSH (Thyroid Stim Horm) 0.78 mcIU/mL Normal 0.34-5.60 Troponin-I (TnI) 0.00 ng/mL <0.04 9 Comp Metabolic 03/12/2019 [facility] Sodium 141 mmol/L Normal 135-[address] [place] [address] [phone] Potassium 4.9 mmol/L Normal 3.5-5.0 Chloride 106 mmol/L Normal 101-111 Co2 Carbon Dioxide 30 mmol/L Normal 22-32 Anion Gap 5 mmol/L Normal 2-11 Glucose 81 mg/dL Normal 70-100 Blood Urea Nitrogen 8 mg/dL Normal 6-24 Creatinine 0.78 mg/dL Normal 0.51-0.95 BUN/Creatinine Ratio 10.3 Normal 8-20 Calcium 9.7 mg/dL Normal 8.6-10.3 Total Protein 7.1 g/dL Normal 6.4-8.9 Albumin 4.6 g/dL Normal 3.2-5.2 Globulin 2.5 g/dL Normal 2-4 Albumin/Globulin Ratio 1.8 Normal 1-3 Total Bilirubin 0.30 mg/dL Normal 0.2-1.0 Alkaline Phosphatase 42 U/L Normal 34-104 Alt 11 U/L Normal 7-52 Ast 13 U/L Normal 13-39 Egfr Non- 81.4 >60 Egfr 98.5 >60 10 CBC Auto 03/12/2019 [facility] White Blood 7.9 10^3/uL Normal 3.5-10.[address] [place] [address] [phone] Red Blood Count 4.94 10^6/uL High 3.70-4.87 Hemoglobin 14.6 g/dL Normal 12.0-16.0 Hematocrit 43 % Normal 35-47 Mean Corpuscular Volume 87 fL Normal 80-97 Mean Corpuscular Hemoglobin 30 pg Normal 27-31 Mean Corpuscular HGB Conc 34 g/dL Normal 31-36 Red Cell Distribution Width 13 % Normal 10.5-15 Platelet Count 291 10^3/uL Normal 150-450 Mean Platelet Volume 8.2 fL Normal 7.4-10.4 Abs Neutrophils 5.3 10^3/uL Normal 1.5-7.7 Abs Lymphocytes 2.1 10^3/uL Normal 1.0-4.8 Abs Monocytes 0.5 10^3/uL Normal 0-0.8 Abs Eosinophils 0.1 10^3/uL Normal 0-0.6 Abs Basophils 0.0 10^3/uL Normal 0-0.2 Abs Nucleated RBC 0.0 10^3/uL Granulocyte % 66.7 % Lymphocyte % 26.3 % Monocyte % 5.8 % Eosinophil % 0.7 % Basophil % 0.5 % Nucleated Red Blood Cells % 0.0 Comp Metabolic 09/10/2018 [facility] Sodium 141 mmol/L Normal 135-145 Panel [address] [place] [address] [phone] Potassium 4.3 mmol/L Normal 3.5-5.0 Chloride 108 mmol/L Normal 101-111 Co2 Carbon Dioxide 27 mmol/L Normal 22-32 Anion Gap 6 mmol/L Normal 2-11 Glucose 97 mg/dL Normal 70-100 Blood Urea Nitrogen 11 mg/dL Normal 6-24 Creatinine 0.79 mg/dL Normal 0.51-0.95 BUN/Creatinine Ratio 13.9 Normal 8-20 Calcium 9.4 mg/dL Normal 8.6-10.3 Total Protein 6.6 g/dL Normal 6.4-8.9 Albumin 4.2 g/dL Normal 3.2-5.2 Globulin 2.4 g/dL Normal 2-4 Albumin/Globulin Ratio 1.8 Normal 1-3 Total Bilirubin 0.50 mg/dL Normal 0.2-1.0 Alkaline Phosphatase 45 U/L Normal 34-104 Alt 13 U/L Normal 7-52 Ast 13 U/L Normal 13-39 Egfr Non- 80.6 >60 Egfr 97.5 >60 11 Lipid Profile 09/10/2018 [facility] Triglycerides 67 mg/dL 12 (Trig/Chol/HDL) [address] [place] [address] [phone] Cholesterol 214 mg/dL 13 HDL Cholesterol 64.9 mg/dL 14 LDL Cholesterol 136 mg/dL 15 CBC Auto 09/10/2018 [facility] White Blood 6.9 10^3/uL Normal 3.5-10.[address] [place] [address] [phone] Red Blood Count 4.93 10^6/uL Normal 4.00-5.40 Hemoglobin 14.9 g/dL Normal 12.0-16.0 Hematocrit 43 % Normal 35-47 Mean Corpuscular Volume 88 fL Normal 80-97 Mean Corpuscular Hemoglobin 30 pg Normal 27-31 Mean Corpuscular HGB Conc 34 g/dL Normal 31-36 Red Cell Distribution Width 13 % Normal 10.5-15 Platelet Count 256 10^3/uL Normal 150-450 Mean Platelet Volume 8.1 fL Normal 7.4-10.4 Abs Neutrophils 4.0 10^3/uL Normal 1.5-7.7 Abs Lymphocytes 2.2 10^3/uL Normal 1.0-4.8 Abs Monocytes 0.5 10^3/uL Normal 0-0.8 Abs Eosinophils 0.1 10^3/uL Normal 0-0.6 Abs Basophils 0 10^3/uL Normal 0-0.2 Abs Nucleated RBC 0 10^3/uL Granulocyte % 58.8 % Normal 38-83 Lymphocyte % 32.8 % Normal 25-47 Monocyte % 6.8 % Normal 0-7 Eosinophil % 1.2 % Normal 0-6 Basophil % 0.4 % Normal 0-2 Nucleated Red Blood Cells % 0.1 Laboratory test 09/10/2018 [facility] Erythrocyte Sed 8 mm/Hr Normal 0-14 [address] [place] [address] [phone] C Reactive Protein < 1.00 mg/L Normal <8.01 17 Laboratory test 11/07/2016 [facility] Hemoglobin A1c 4.8 % Normal Less than [address] (Glyco HGB) 6.0 [place] [address] [phone] TSH (Thyroid Stim Horm) 1.50 mcIU/mL Normal 0.34-5.60 Lipid Profile 11/07/2016 [facility] Triglycerides 48 mg/dL Normal 19 (Trig/Chol/HDL) [address] [place] [address] [phone] Cholesterol 179 mg/dL Normal 20 HDL Cholesterol 50.2 mg/dL Normal 21 LDL Cholesterol 119 mg/dL Normal 22 Laboratory 11/04/2015 [facility] Negative Normal Negative 23 test finding [address] (HCG) [place] [address] [phone] 1 Because ethnic data is not always [...] 5 Kidney failure <15 (or dialysis) 2 Troponin-I testing on Plasma Separator Tubes (PST) has a known false positive rate of 0.20-0.40%. All positive troponins reflex immediately to secondary confirmatory testing. Using the [employer] DxI 800 Access Immunoassay systems, the 99th percentile upper reference limit was demonstrated to be < 0.03 ng/mL. 3 [facility] Severe Sepsis and Septic Shock Management Bundle Measure requires all lactic acids initially measuring >2.0 mmol/L be repeated. 4 The urine specimen was tested at the listed cutoffs: Drug class test level (ng/mL) Amphetamines 500 Barbiturates 200 Benzodiazepine metabolites 200 Cocaine metabolites 150 Cannabinoids 50 Opiates 300 Pcp 25 Specimen was received without chain of custody. Results should be used for medical purposes only. 5 Because ethnic data is not always readily [...] 15-29 5 Kidney failure <15 (or dialysis) 6 <5.0 Negative 5.0 - 25.0 Indeterminate (Repeat testing recommended after 72 hours) >25.0 Positive Perimenopausal women can display HCG levels of up to 20 mIU/mL 7 Therapeutic concentration: <50 ug/mL Toxic concentration: >120 ug/mL 8 Please note: The following may produce a false positive D Dimer test: - Rheumatoid factor greater than 60 IU/ml - Plasma hemoglobin greater than 0.05 gm/dl - Bilirubin greater than 50 mg/dl - Lipids greater than 1000 mg/dl - FDP greater than 20 ug/ml 9 Troponin-I testing on Plasma Separator Tubes (PST) has a known false positive rate of 0.20-0.40%. All positive troponins reflex immediately to secondary confirmatory testing. Using the [employer] 800 Access Immunoassay systems, the 99th percentile upper reference limit was demonstrated to be < 0.03 ng/mL. 10 Because ethnic data is not always [...] 5 Kidney failure <15 (or dialysis) 11 Because ethnic data is not always readily [...] 15-29 5 Kidney failure <15 (or dialysis) 12 Desirable: <150 Borderline High: 150-199 High: 200-499 Very High: >500 13 Desirable: <200 Borderline High: 200-239 High: >239 14 Low: <40 Desirable: 40-60 High: >60 15 Desirable: <100 Near Optimal: 100-129 Borderline High: 130-159 High: 160-189 Very High: >189 16 FASTING 10 HOUR 17 FASTING 10 HOUR 18 Therapeutic target for the treatment of diabetes Mellitus patients is <7% HBA1C, and in selective patients <6.0%.Please refer to [place] [employer] Diabetic care guidelines for further information. 19 Desirable <150 Borderline high 150-199 High 200-499 Very High >500 20 Desirable <200 Borderline high 200-239 High >239 21 Low <40 Desirable: 40-60 High: >60 22 Desirable: <100 mg/dL Near Optimal: 100-129 mg/dL Borderline High: 130-159 mg/dL High: 160-189 mg/dL Very High: >189 mg/dL 23 If is still suspected, please repeat test after 48 to 72 hours. This test detects intact HCG only and is indicated for the early detection of . Procedures Date Code Description Status 04/10/2019 18242 EKG Tracing & Interpretation Completed 03/12/2019 85960 EKG Tracing & Interpretation Completed 11/04/2015 11593 Arthroscopy,Shoulder Decompression Of Subacromial Space Completed W/Acromio 11/04/2015 39596 Arthroscopy,Shoulder Decompression Of Subacromial Space Completed W/Acromio 11/04/2015 13071 Arthroscopy Shoulder Debridement Limited Completed 11/04/2015 47619 Arthroscopy Shoulder Debridement Limited Completed 08/05/2015 29395 Inject/Drain Joint/Bursa Major W/O US Completed 05/25/2014 33955 Rad Shoulder Comp, Min. 2 Views Completed Encounters Type Date Location Provider Dx Diagnosis Office Visit 04/16/2019 [facility] Rachel Pope MD F41.9 Anxiety disorder, 9:00a Medicine - [facility] unspecified Office Visit 04/10/2019 [facility] Pankaj Harvey R07.9 Chest pain, 9:00a Hollie Landrum unspecified R00.2 Palpitations Q21.1 Atrial septal defect F17.200 Nicotine dependence, unspecified, uncomplicated R06.02 Shortness of breath R53.83 Other fatigue R94.31 Abnormal electrocardiogram [ECG] [EKG] Office Visit 04/09/2019 9:20a [facility] Alton Quezada NP M79.605 Pain in left Medicine - [facility] leg I83.812 Varicose veins of left lower extremity with pain F32.89 Other specified depressive episodes Office Visit 03/12/2019 2:40p 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 Office Visit 09/09/2018 [facility] Alton Quezada NP H91.90 Unspecified 4:[facility], unspecified ear R51 Headache Z13.220 Encounter for screening for lipoid disorders Z13.1 Encounter for screening for diabetes mellitus Office Visit 11/23/2017 2:00p 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 Sly M54.2 Cervicalgia Visit 8:00a Vamsi Rhoades M.D. Office 11/21/[address] [facility] Sly I83.92 Asymptomatic Visit 8:00a Vamsi Rhoades M.D. varicose veins of left lower extremity L60.8 Other nail disorders B35.1 Tinea unguium Office Visit 11/07/[address] [facility] Sly F43.23 Adjustment 9:20a Vamsi Rhoades [...] M25.511 Pain in right Services Of [facility] MAngelicaD. shoulder M75.31 Calcific tendinitis of right shoulder S43.421A Sprain of right rotator cuff capsule, initial encounter M75.41 Impingement syndrome of right shoulder Office Visit 05/25/2014 1:00p Orthopedic Joanne Silva, 719.41 [facility] [place] [facility] Shoulder [facility] 718.81 Derangement Joint Other Not Elsewhere Class Shoulder Plan of Treatment Future Appointment(s):05/22/2019 8:40 am - Rachel Pope MD at [facility] Medicine - [facility]06/11/2019 9:00 am - Yury COLLINS Schedule at [facility]06/11/2019 9:30 am - Pankaj Landrum M.D. at [facility] 10:00 am - Koko Negron LCSW at [facility] Internal Medicine - [facility]06/13/2019 10: 00 am - Koko Negron LCSW at [facility] Internal Medicine - [facility]05/30/2019 11:30 am - Koko Negron LCSW at [facility] Medicine - [facility]06/04/2019 8:30 am - Lauren Bolanos N.P. at [facility]05/30/2019 8:45 am - Jerod Maurer M.D. at [place] [facility]05/20/2019 - Rachel Pope, MDD17.24 Benign lipomatous neoplasm of skin and subcutaneous tissue of left legNew Medication: Crutches-Aluminum - Use as needed Dx-d17.24 05/20/2019Referral:Oseas Olson MD, Surgery,VhjkxceJ47.89 Other specified depressive episodesComments:Continue [id number] Varicose veins of left lower extremity with painComments: Continue to f/u vascular surgery
[2019-05-20 14:54] LABS: ABS Basophils 0.1 10^3/ul (0-0.2); ABS Eosinophils 0.1 10^3/ul (0-0.6); ABS Lymphocytes 2.1 10^3/ul (1.0-4.8); ABS Monocytes 0.4 10^3/ul (0-0.8); ABS Neutrophils 3.7 10^3/ul (1.5-7.7); Eosinophil % 1.5 %; Hematocrit 40 % (35-47); Hemoglobin 14.1 g/dL (12.0-16.0); Lymphocyte % 32.7 %; Mean Corpuscular HGB Conc 35 g/dL (31-36); Mean Corpuscular Hemoglobin 30 pg (27-31); Mean Corpuscular Volume 86 fL (80-97); Mean Platelet Volume 7.9 fL (7.4-10.4); Platelet Count 249 10^3/uL (150-450); Red Blood Count 4.68 10^6 /uL (3.70-4.87); Red Cell Distribution Width 13 % (10-15); White Blood Count 6.4 10^3/uL (3.5-10.8)
[2019-05-20 15:04] LABS: INR 1.15 (0.82-1.09)
[2019-05-20 15:14] LABS: Albumin 4.2 g/dL (3.2-5.2); Albumin/Globulin Ratio 1.8 (1-3); BUN/Creatinine Ratio 11.9 (8-20); Calcium 9.2 mg/dL (8.6-10.3); EGFR African American 117.4 (>60); Globulin 2.4 g/dL (2-4); Potassium 3.5 mmol/L (3.5-5.0); Total Bilirubin 0.5 mg/dL (0.2-1.0); Total Protein 6.6 g/dL (6.4-8.9)
--- NOTE | 2019-05-20 20:23 | ED ---
Lower Extremity - HPI Summary HPI Summary: Patient complains of ongoing left calf pain 2 days. Pain is intermittent, worse with movement. Denies initial trauma, fever, cough, sore throat, CP, SOB , N/V/V abdominal pain, change in urine, change in BM. Patient has history of DVT, concerned this is a DVT again. Was seen here 2 days ago for same pain with negative ultrasound for DVT. Patient concerned ultrasound was not conducted correctly. Denies any other pain injury or symptoms. History of lipoma on left calf which she states is painful. No anti-coagulation. - History of Current Complaint Chief Complaint: EDExtremityLower Stated Complaint: GENERALIZED PAIN PER EMS Time Seen by Provider: 05/20/19 19:50 Hx Obtained From: Patient Mechanism Of Injury: Unknown Onset of Pain: Days Onset/Duration: Days Severity Initially: Moderate Severity Currently: Moderate Pain Intensity: 5 Pain Scale Used: 0-10 Numeric Timing: Intermittent Location: Is Discrete @ Character Of Pain: Aching, Throbbing, Spasmodic Associated Signs And Symptoms: Positive: Negative Alleviating Factor(s): Rest Able to Bear Weight: Yes - Allergies/Home Medications Allergies/Adverse Reactions: Allergies Allergy/AdvReac Type Severity Reaction Status Date / Time morphine Allergy Rash Verified 05/18/19 19:58 PMH/Surg Hx/FS Hx/Imm Hx Endocrine/Hematology History: Denies: Hx Bone Marrow Disease, Hx Diabetes, Hx Sickle Cell Disease, Hx Thyroid Disease, Hx Anemia Cardiovascular History: Reports: Other Cardiovascular Problems/Disorders - ATRIAL SEPTAL DEFECT REPAIR Denies: Hx Angina, Hx Cardiomegaly, Hx Congestive Heart Failure, Hx Coronary Artery Disease, Hx Hypertension, Hx Pacemaker/ICD, Hx Peripheral Vascular Disease, Hx Rheumatic Fever, Hx Valvular Heart Disease Respiratory History: Denies: Hx Asthma, Hx Pulmonary Edema, Hx Pulmonary Embolism, Hx Sleep Apnea , Other Respiratory Problems/Disorders GI History: Denies: Hx Cirrhosis, Hx Crohn's Disease, Hx Gastroesophageal Reflux Disease , Hx Hiatal Hernia, Hx Irritable Bowel, Hx Jaundice, Hx Ulcer, Other GI Disorders History: Reports: Hx Kidney Stones - HX OF WHICH SHE PASSED Denies: Hx Kidney Infection, Other Problems/Disorders Musculoskeletal History: Reports: Hx Arthritis - TOES, Hx Bursitis - RIGHT SHOULDER, Hx Tendonitis - RIGHT SHOULDER Denies: Other Musculoskeletal History Sensory History: Reports: Hx Contacts or Glasses Denies: Hx Cataracts, Hx Glaucoma, Hx Hearing Aid Opthamlomology History: Reports: Hx Contacts or Glasses Denies: Hx Cataracts, Hx Glaucoma Neurological History: Reports: Hx Headaches, Hx Migraine Denies: Hx Seizures, Other Neuro Impairments/Disorders Psychiatric History: Reports: Hx Anxiety, Hx Eating Disorder, Hx Depression, Hx Panic Disorder, Hx Inpatient Treatment, Hx Community Mental Health Tx, Hx Bipolar Disorder, Hx Substance Abuse Denies: Hx of Violent Episodes Against Others - Cancer History Hx Chemotherapy: No - Surgical History Surgery Procedure, Year, and Place: 1998 CSECTION,. 2012 LAPAROSCOPIC CHOLECYSTECTOMY,. 2012 APPENDECTOMY, [facility]. 07/2014 ATRIAL SEPTAL DEFECT (ASD) - REPAIRED W/ PATCH, SAFE FOR 1.5T, [facility] Anesthesia Reactions: No Infectious Disease History: No Infectious Disease History: Denies: Hx Hepatitis, Traveled Outside the [place] in Last 30 Days - Family History Known Family History: Positive: Cardiac Disease - heart attacks paternal and maternal Negative: Respiratory Disease - Social History Alcohol Use: None Alcohol Amount: none in 3 years Hx Substance Use: No Substance Use Type: Reports: None Substance Use Comment - Amount & Last Used: last used alcohol and marijuana 12 days ago Hx Tobacco Use: Yes - EXS[employer] Smoking Status (MU): Light Every Day Tobacco Smoker Type: Cigarettes Amount Used/How Often: 1 PPD Length of Time of Smoking/Using Tobacco: 20 YEARS Have You Smoked in the Last Year: No Review of Systems Constitutional: Negative Eyes: Negative ENT: Negative Cardiovascular: Negative Respiratory: Negative Gastrointestinal: Negative Genitourinary: Negative Musculoskeletal: Other Skin: Negative Neurological: Negative Psychological: Normal All Other Systems Reviewed And Are Negative: Yes Physical Exam - Summary Physical Exam Summary: No erythema, ecchymosis, deformity, swelling noted to left calf, ankle, foot. PMS intact distally.. Tenderness along the length of left calf muscle. 3 cm x 3 cm mass on distal posterior calf consistent with lipoma. Triage Information Reviewed: Yes Vital Signs On Initial Exam: Initial Vitals Temp Pulse Resp BP Pulse Ox 98.4 F 80 14 119/72 98 05/20/19 14:21 05/20/19 14:21 05/20/19 14:21 05/20/19 14:21 05/20/19 14:21 Vital Signs Reviewed: Yes Appearance: Positive: Well-Appearing Skin: Positive: Warm Head/Face: Positive: Normal Head/Face Inspection Eyes: Positive: Normal Neck: Positive: Supple Respiratory/Lung Sounds: Positive: Clear to Auscultation Cardiovascular: Positive: Normal Abdomen Description: Positive: Nontender Musculoskeletal: Positive: Normal Neurological: Positive: Normal Psychiatric: Positive: Normal AVPU Assessment: Alert - Lisa Coma Scale Best Eye Response: 4 - Spontaneous Best Motor Response: 6 - Obeys Commands Best Verbal Response: 5 - Oriented Coma Scale Total: 15 Diagnostics - Vital Signs Vital Signs Temp Pulse Resp BP Pulse Ox 05/20/19 18:20 98.4 F 82 16 117/71 98 05/20/19 16:25 98.7 F 78 16 131/90 99 05/20/19 14:21 98.4 F 80 14 119/72 98 - Laboratory Lab Results: Lab Results 05/20/19 05/20/19 05/20/19 Range/Units 14:46 14:46 14:46 WBC 6.4 (3.5-10.8) 10^3/uL RBC 4.68 (3.70-4.87) 10^6 /uL Hgb 14.1 (12.0-16.0) g/dL Hct 40 (35-47) % MCV 86 (80-97) fL MCH 30 (27-31) pg MCHC 35 (31-36) g/dL RDW 13 (10-15) % Plt Count 249 (150-450) 10^3/uL MPV 7.9 (7.4-10.4) fL Neut % (Auto) 58.4 % Lymph % (Auto) 32.7 % [place] % (Auto) 6.5 % Eos % (Auto) 1.5 % Baso % (Auto) 0.9 % Absolute Neuts (auto) 3.7 (1.5-7.7) 10^3/ul Absolute Lymphs (auto) 2.1 (1.0-4.8) 10^3/ul Absolute Monos (auto) 0.4 (0-0.8) 10^3/ul Absolute Eos (auto) 0.1 (0-0.6) 10^3/ul Absolute Basos (auto) 0.1 (0-0.2) 10^3/ul Absolute Nucleated RBC 0.0 10^3/ul Nucleated RBC % 0.0 INR (Anticoag Therapy) 1.15 H (0.82-1.09) Sodium 139 (135-145) mmol/L Potassium 3.5 (3.5-5.0) mmol/L Chloride 108 (101-111) mmol/L Carbon Dioxide 26 (22-32) mmol/L Anion Gap 5 (2-11) mmol/L BUN 8 (6-24) mg/dL Creatinine 0.67 (0.51-0.95) mg/dL Est GFR ( Amer) 117.4 (>60) Est GFR (Non-Af Amer) 97.0 (>60) BUN/Creatinine Ratio 11.9 (8-20) Glucose 111 H (70-100) mg/dL Calcium 9.2 (8.6-10.3) mg/dL Total Bilirubin 0.50 (0.2-1.0) mg/dL AST 13 (13-39) U/L ALT 11 (7-52) U/L Alkaline Phosphatase 34 (34-104) U/L Troponin I 0.00 (<0.04) ng/mL Total Protein 6.6 (6.4-8.9) g/dL Albumin 4.2 (3.2-5.2) g/dL Globulin 2.4 (2-4) g/dL Albumin/Globulin Ratio 1.8 (1-3) 05/20/ Range/Units 17:43 WBC (3.5-10.8) 10^3/uL RBC (3.70-4.87) 10^6 /uL Hgb (12.0-16.0) g/dL Hct (35-47) % MCV (80-97) fL MCH (27-31) pg MCHC (31-36) g/dL RDW (10-15) % Plt Count (150-450) 10^3/uL MPV (7.4-10.4) fL Neut % (Auto) % Lymph % (Auto) % [place] % (Auto) % Eos % (Auto) % Baso % (Auto) % Absolute Neuts (auto) (1.5-7.7) 10^3/ul Absolute Lymphs (auto) (1.0-4.8) 10^3/ul Absolute Monos (auto) (0-0.8) 10^3/ul Absolute Eos (auto) (0-0.6) 10^3/ul Absolute Basos (auto) (0-0.2) 10^3/ul Absolute Nucleated RBC 10^3/ul Nucleated RBC % INR (Anticoag Therapy) (0.82-1.09) Sodium (135-145) mmol/L Potassium (3.5-5.0) mmol/L Chloride (101-111) mmol/L Carbon Dioxide (22-32) mmol/L Anion Gap (2-11) mmol/L BUN (6-24) mg/dL Creatinine (0.51-0.95) mg/dL Est GFR ( Amer) (>60) Est GFR (Non-Af Amer) (>60) BUN/Creatinine Ratio (8-20) Glucose (70-100) mg/dL Calcium (8.6-10.3) mg/dL Total Bilirubin (0.2-1.0) mg/dL AST (13-39) U/L ALT (7-52) U/L Alkaline Phosphatase (34-104) U/L Troponin I 0.00 (<0.04) ng/mL Total Protein (6.4-8.9) g/dL Albumin (3.2-5.2) g/dL Globulin (2-4) g/dL Albumin/Globulin Ratio (1-3) Result Diagrams: 05/20/19 14:46 05/20/19 14:46 Lab Statement: Any lab studies that have been ordered have been reviewed, and results considered in the medical decision making process. Lower Extremity Course/Dx - Course Course Of Treatment: Patient complains of ongoing left calf pain 2 days. Pain is intermittent, worse with movement. Denies initial trauma, fever, cough, sore throat, CP, SOB, N/V/V abdominal pain, change in urine, change in BM. Patient has history of DVT, concerned this is a DVT again. Was seen here 2 days ago for same pain with negative ultrasound for DVT. Patient concerned ultrasound was not conducted correctly. Denies any other pain injury or symptoms. History of lipoma on left calf which she states is painful. No anti- coagulation. Vital signs within normal limits. Ultrasound 2 days ago negative for DVT. Physical exam consistent with muscle strain. Patient has appointment with surgery Dr. Olson for further evaluation of lipoma next week. - Diagnoses Provider Diagnoses: Muscle strain Discharge - Sign-Out/Discharge Documenting (check all that apply): Patient Departure Patient Received Moderate/Deep Sedation with Procedure: No - Discharge Plan Condition: Stable Disposition: HOME Patient Education Materials: Muscle Strain (ED) Referrals: Chari Carrasquillo MD [Primary Care Provider] - Additional Instructions: Alternate ibuprofen 600 mg with Tylenol 650 mg every 3 hours for pain. Heating pad will also help. Avoid activities that might further strain left calf muscle. Follow-up with Dr. Olson for further evaluation of your lipoma. - Billing Disposition and Condition Condition: STABLE Disposition: Home - Attestation Statements Provider Attestation: I am administratively signing this document. I was available for consultation for this patient. I did not evaluate the patient, did not have a doctor/patient relationship with the patient, or participate in any medical decision making or disposition decisions unless I am specifically named in the chart as having consulted on the patient. If I have consulted on the patient, please see my own ED note on the patient encounter. Lex Edgar MD
[2019-05-20 20:39] VITALS: BP 123/73
== END 2019-05-20 20:30 | disposition home or self-care (01) ==
LOC: ED 14:18
DX: S86.912A Strain of unspecified muscle(s) and tendon(s) at lower leg level, left leg, initial encounter (principal); X58.XXXA Exposure to other specified factors, initial encounter; Y92.9 Unspecified place or not applicable; D17.24 Benign lipomatous neoplasm of skin and subcutaneous tissue of left leg; Z86.718 Personal history of other venous thrombosis and embolism; Z88.5 Allergy status to narcotic agent; Z87.74 Personal history of (corrected) congenital malformations of heart and circulatory system; F17.210 Nicotine dependence, cigarettes, uncomplicated
CPT/HCPCS: 36415; 80053; 84484; 85025; 85610; 93005; 99282